=== PATIENT | female | born 1965 | race Caucasian/White ===

== ENCOUNTER 2017-05-22 11:25 | Inpatient (IN) | payer OTHER, SELFPAY ==
[2017-05-22] MEDS ORDERED: Insulin Regular 300 UNITS/3 ML VIAL ONE (11:52)
[2017-05-22 12:06] LABS: #Eosinphils 0.2 thou/uL (0.0-0.7); #Lymphocytes 2.4 thou/uL (1.20-3.40); #Monocytes 0.5 thou/uL (0.11-0.59); #Neutrophils 5.8 thou/uL (1.40-6.50); %Basophils 0.3 % (0.0-1.0); %Eosinophils 2.3 % (0.0-10.0); %Lymphocytes 26.6 % (21.0-51.0); Hematocrit 34.4 % (36.0-47.0); Mean Platelet Volume 7.9 fL (7.4-10.4); Red Blood Cell (RBC) Count 3.84 mill/uL (4.20-5.40); White Blood Cell (WBC) Count 8.9 thou/uL (4.8-10.8)
[2017-05-22 12:19] LABS: Anion Gap 11 mmol/L (-14-95); T. Carbon Dioxide 17.8 mmol/L (1.0-85.0); pH (Venous) 7.378 (7.35-7.45); vO2 Saturation-calc 98.2 % (0.0-100.0)
[2017-05-22 12:20] LABS: Bilirubin Negative (Negative); Blood, Urine Negative (Negative); Glucose, Urine (Dipstick) >=1000 mg/dL (Negative); Ketone, Urine Negative (Negative); Nitrite Negative (Negative); Protein, Urine (Dipstick) Negative (Neg-Trace); Urobilinogen 0.2 mg/dL (0.2-1.0)
[2017-05-22 12:31] LABS: ALT (SGPT) 69 U/L (8-55); AST (SGOT) 41 U/L (5-34); Alkaline Phosphatase 109 U/L (40-150); Anion Gap 17 mmol/L (10-20); BUN (Urea Nitrogen) 37 mg/dL (9.8-20.1); Bilirubin, Total 0.2 mg/dL (0.2-1.2); CK (CPK) 89 U/L (29-168); Calc. Creatinine Clearance 0 mL/min (70-130); Calcium 9.4 mg/dL (7.8-10.44); Carbon Dioxide 15 mmol/L (22-29); Chloride 99 mmol/L (98-107); Estimated GFR-MDRD 24; Globulin 4.1 g/dL (2.4-3.5); Lipase 40 U/L (8-78); Magnesium 1.7 mg/dL (1.6-2.6); Phosphorus 3.8 mg/dL (2.3-4.7); Protein, Total 7.8 g/dL (6.0-8.3); Troponin I 0.012 ng/mL (< 0.028)
[2017-05-22] MEDS ORDERED: Labetalol HCl 100 MG/20 ML VIAL ONE (13:32)
--- NOTE | 2017-05-22 14:32 | RAD ---
PORTABLE AP CHEST XRAY: DATE: 05/22/17. HISTORY: Altered mental status. COMPARISON: 10/25/16. FINDINGS: Cardiac silhouette is magnified by projection but stable in size. Pulmonary vasculature is within no rmal limits. The lungs are clear. There has been no interval change from prior study. IMPRESSION: No acute cardiopulmonary process. POS: [facility]
[2017-05-22] MEDS ORDERED: Ondansetron HCl/PF 4 MG/2 ML Vial IVP PRN (15:11)
[2017-05-22] MEDS ORDERED: Ondansetron ODT 4 MG TAB SL PRN (15:11)
[2017-05-22 15:17] VITALS: BMI 32.5
[2017-05-22] MEDS ORDERED: HYDROcodone/Acetaminophen 5/325 mg Tablet PO PRN (16:01)
[2017-05-22] MEDS ORDERED: Docusate 100 MG CAP PO PRN (16:01)
[2017-05-22] MEDS ORDERED: Acetaminophen 500 MG TAB PO PRN (16:20)
[2017-05-22] MEDS ORDERED: HumaLOG 300 UNITS/3 ML VIAL SC PRN (16:28)
[2017-05-22] MEDS ORDERED: Dextrose 5% in Water 1,000 ML IV PRN (16:28)
[2017-05-22] MEDS ORDERED: Dextrose 50% Abboject 50 ML SYRINGE SLOW IVP PRN (16:28)
[2017-05-22 16:35] LABS: Osmolality, Urine 561 mOsm/kg (300-900)
[2017-05-22] MEDS ORDERED: hydrALAZINE 20 MG/ML VIAL SLOW IVP PRN (16:44)
[2017-05-22 16:47] LABS: Sodium, Urine 76 mmol/L (Not Available)
[2017-05-22] MEDS: HYDROcodone/Acetaminophen 10/325 mg Tablet PO PRN ×2 (17:04→20:55)
[2017-05-22] MEDS: Clindamycin 150 MG CAP PO SCH (17:41)
[2017-05-22] MEDS: Sodium Chloride 0.9% 1,000 ML IV SCH (17:41)
[2017-05-22] MEDS: Simvastatin 5 MG TAB PO SCH (20:35)
[2017-05-22] MEDS: Insulin NPH/Reg Insulin Hm 300 UNITS/3 ML VIAL SC SCH (20:57)
[2017-05-22] MEDS ORDERED: FLU VACC QS2017-18 36 mo. & older 0.5 ML SYRINGE IM ONE (21:00)
[2017-05-23] MEDS: Clindamycin 150 MG CAP PO SCH ×2 (00:17→09:07)
[2017-05-23] MEDS: Sodium Chloride 0.9% 1,000 ML IV SCH ×2 (00:18→07:03)
--- NOTE | 2017-05-23 00:28 | ADD-HP ---
DATE OF SERVICE: 05/22/2017 CHIEF COMPLAINT: Hyperglycemia and tooth pain. HISTORY OF PRESENT ILLNESS: The patient is a 52-year-old female with a past medical history of denta l caries, diabetes, and hypertension, who presented to the ER for a 3-day history of tooth pain. The patient states that over the past couple of days she has noted increasingly high readings on her glu cometer. She has a bad tooth in the left lower jaw, but does not have money to go see a dentist. He r glucometers have been reading high for the past couple of days despite her taking her regular doses of insulin. In the ER, she was found to be hypertenive and hyperglycemic and given a dose of Humuli n as well as labetalol. Upon looking at her labs further, the patient is hyponatremic and hyperkalem ic. The patient's initial glucose was 604 and her initial creatinine was 2.16. AST and ALT are 41 a nd 69 respectively, but looking back that she has chronically elevated transaminases and has had an u ltrasound showing a fatty liver in the past. Beta hydroxybutyrate was normal and UA was significant for greater than 1000 glucose. ASSESSMENT AND PLAN: The patient is being admitted for hyperglycemia likely secondary to a tooth inf ection. The patient will be started on amoxicillin and given pain medicine to help control her tooth ache. Ultimately, she will need to see a dentist and have her teeth removed. She also has hyponatre ambar. We will likely do urine studies to help determine the cause of her hyponatremia. Based on exam , I think she may have hypovolemic as she has not had as much intake due to the sore tooth. We will trend her creatinine and start IV fluids. Monitor her electrolytes closely. The patient will be continued on insulin and also sliding scale insulin and we will adjust this as needed. She will b e restarted on her home blood pressure medications and also p.r.n. I reviewed and discussed the hist ory and physical with Dr. Martinez and agree with her documentation. I have repeated pertinent portion s myself.
[2017-05-23] MEDS: HYDROcodone/Acetaminophen 10/325 mg Tablet PO PRN ×3 (01:58→14:05)
--- NOTE | 2017-05-23 02:53 | HP-2 ---
DATE OF SERVICE: 05/22/2017 DATE OF ADMISSION: 05/22/2017 CODE STATUS: FULL. PRIMARY CARE PHYSICIAN: Gem Olivo. ATTENDING: Karrie White M.D. PGY1: Dr. Juan Montejo. HISTORIAN: The patient. CHIEF COMPLAINT: Tooth pain. HISTORY OF PRESENT ILLNESS: The patient presents with left tooth pain in her left lower jaw since Tuesday. The patient states that she lost her filling several months ago and has not had any insurance, and therefore, has not been able to go to a dentist. However, the patient does have a dentist appointment tomorrow at a clinic where she can pay 50 dollars to have her tooth removed. However, the patient was experiencing intense pain, elevated blood pressures, and elevated blood sugars to the 600 due to her tooth pain. PAST MEDICAL HISTORY: Diabetes, hypertension, CKD. PAST SURGICAL HISTORY: Hemorrhoidectomy x2, bilateral tubal ligation, hysterectomy. ALLERGIES: No known drug allergies. MEDICATIONS: 70/30 insulin, metoprolol, lovastatin, citalopram, lisinopril/ hydrochlorothiazide. FAMILY HISTORY: Denies. SOCIAL HISTORY: Denies tobacco, alcohol, or drug use. REVIEW OF SYSTEMS: Positive for fevers, tooth pain, and headache. Denies cough , congestion, chest pain, palpitations, nausea, vomiting, dysuria. PHYSICAL EXAMINATION: VITAL SIGNS: Blood pressure 188/81, pulse 72, respiratory rate 18, T-max 97.4, pulse ox 97% on room air. Current weight 94 kilograms. GENERAL: Alert and oriented x3, well-developed, well-nourished, appropriately interactive. EYES: PERRLA, EOMI. NECK: Supple, no lymphadenopathy or thyromegaly. ENT: Oropharynx. Tender to palpation in the left lower jaw gumline without erika pus or abscess. CARDIOVASCULAR: Regular rate and rhythm. No murmur, rubs, or gallops. Radial pulses 2+. RESPIRATORY: Normal effort, no retractions, clear to auscultation bilaterally. ABDOMEN: Soft, nontender to palpation. Bowel sounds in all 4 quadrants. No mass or distention. EXTREMITIES: No clubbing or cyanosis. MUSCULOSKELETAL: Structure within normal limits. NEUROLOGIC: No focal deficits. Cranial nerves II through XII intact. GCS 15. PSYCHIATRIC: Appropriate. LABORATORY DATA: CBC, white blood cell count 8.9, H and H 12 and 34.4, platelets 233. Chemistry: Sodium 126, potassium 5.2, chloride of 99, bicarbonate 15, BUN 37, creatinine 2.16, glucose 604. AST and ALT 91 and 69. GFR 24. ASSESSMENT AND PLAN: This is a 52-year-old female with a chief complaint of left molar pain since Tuesday without signs and symptoms of an abscess, not tachycardic or tachypneic, without leukocytosis or fever, admitted for odontogenic cavity, hyperglycemia, and hypertensive urgency. 1. Hyperglycemia secondary to odontogenic infection. The patient was placed on sliding scale insulin and her home regimen was increased. 2. Odontogenic infection, nonsuppurative without signs of an abscess. The patient was placed on clindamycin. The patient is currently afebrile with vital signs that are within normal limits. No need for imaging at this time. Will follow up with a dentist in an outpatient setting. The patient has a scheduled dentist appointment tomorrow. Pain medication will be provided. 3. Hypertensive urgency, likely secondary to odontogenic infection and secondary to pain. The patient's home medications were restarted and she was placed on p.r.n. hydralazine. No signs or symptoms of end-organ damage. 4. Mild hyperkalemia. The patient was provided with one dose of Kayexalate. Potassium will be rechecked in the morning. 5. Mild acute kidney injury on chronic kidney disease stage 3. The patient was started on intravenous fluids. This is likely the mild acute kidney injury likely secondary to the infection. 6. Hypotonic hyponatremia. The patient had a corrected sodium of 134. We will recheck in the morning. The patient had an elevated glucose to 600. 7. Hyperlipidemia. The patient was restarted on her statin. 8. Chronic kidney disease stage 3. Recommend avoiding nephrotoxic drugs. 9. Nonalcoholic fatty liver disease. The patient has a baseline. We will continue to monitor. DISPOSITION AND LENGTH OF STAY: 2 days. Symptomatic medications will be provided. History and physical exam, as well as management, discussed with Dr. Karrie White. NAINA
[2017-05-23 05:31] LABS: Band 7 % (5-11); Hematocrit 31.4 % (36.0-47.0); Mean Platelet Volume 8.9 fL (7.4-10.4); Myelocyte 1 % (0-0); Neutrophil 54 % (42-75); Red Blood Cell (RBC) Count 3.47 mill/uL (4.20-5.40); White Blood Cell (WBC) Count 8.5 thou/uL (4.8-10.8)
[2017-05-23 05:37] LABS: Anion Gap 13 mmol/L (10-20); BUN (Urea Nitrogen) 28 mg/dL (9.8-20.1); Calc. Creatinine Clearance 55 mL/min (70-130); Calcium 8.5 mg/dL (7.8-10.44); Carbon Dioxide 21 mmol/L (22-29); Chloride 107 mmol/L (98-107); Estimated GFR-MDRD 30
--- NOTE | 2017-05-23 07:57 | PDOC.FM ---
- Subjective Subjective: Pt seen at bedside in NAD. APOLONIA overnight. Pt does c/o some dry cough but notes overall she feels better. Tolerating PO. - Objective MAR Reviewed: Yes Vital Signs & Weight: Vital Signs (12 hours) Temp Pulse Resp BP Pulse Ox 05/23/17 07:50 97.8 F 84 19 166/92 H 95 05/23/17 04:40 98.2 F 87 20 138/77 93 L 05/22/17 23:00 97.8 F 81 20 133/68 95 05/22/17 20:05 97.0 F L 69 20 173/86 H 97 05/22/17 20:00 97.0 F L 69 20 97 Weight Weight 94.347 kg I&O: 05/22/17 05/23/17 05/24/17 06:59 06:59 06:59 Intake Total 2210 Output Total 1380 Balance 830 Result Diagrams: 05/23/17 04:30 05/23/17 04:30 <Zan Mcnair - Last Filed: 05/23/17 09:00> - Objective Vital Signs & Weight: Vital Signs (12 hours) Temp Pulse Resp BP Pulse Ox 05/23/17 09:07 84 05/23/17 09:06 90 05/23/17 08:00 97.8 F 84 19 95 05/23/17 07:50 97.8 F 84 19 166/92 H 95 05/23/17 04:40 98.2 F 87 20 138/77 93 L Weight Weight 94.347 kg I&O: 05/22/17 05/23/17 05/24/17 06:59 06:59 06:59 Intake Total 2210 Output Total 1380 Balance 830 Result Diagrams: 05/23/17 04:30 05/23/17 04:30 <Zach Rodriguez - Last Filed: 05/23/17 11:51> Phys Exam - Physical Examination Constitutional: NAD HEENT: PERRLA extremely poor dentition Neck: full ROM Respiratory: no wheezing, clear to auscultation bilateral Cardiovascular: RRR, no significant murmur Gastrointestinal: soft, positive bowel sounds Musculoskeletal: pulses present Neurological: moves all 4 limbs Psychiatric: normal affect, A&O x 3 <Zan Mcnair - Last Filed: 05/23/17 09:00> Dx/Plan (1) Hyperglycemia due to type 2 diabetes mellitus Code(s): E11.65 - TYPE 2 DIABETES MELLITUS WITH HYPERGLYCEMIA Status: Acute QualifierTitle: Diabetes mellitus retirement insulin use: with marine oil terminal superintendent use Qualified Code(s): E11.65 - Type 2 diabetes mellitus with hyperglycemia; Z79.4 - marine oil terminal superintendent (current) use of insulin; Z79.4 - marine oil terminal superintendent (current) use of insulin; Z79.4 - alf (current) use of insulin; Z79.4 - alf (current ) use of insulin Plan: -pt presented with hyperglycemia and no evidence of anion gap, acidosis, or ketone formation -hyperglycemia likely 2/2 acute odontogenic infection -continue home insulin regimen and continue to monitor accuchecks and cover with SSI as needed (2) Odontogenic infection of jaw Code(s): M27.2 - INFLAMMATORY CONDITIONS OF JAWS Status: Acute Plan: -pt presented for tooth pain and known infection for which she had outpatient f/ u with dentist -pt started on Clindamycin, continue abx -pt will need outpt dental f/u for ultimate treatment of infected tooth -case management consulted for assistance as patient is uninsured (3) Chronic kidney disease stage 3 Code(s): N18.3 - CHRONIC KIDNEY DISEASE, STAGE 3 (MODERATE) Status: Chronic Plan: -pt presented with ASIM on CKD3 likely 2/2 poor PO intake -improving with IVF resuscitation -continue to monitor (4) Hypertension Code(s): I10 - ESSENTIAL (PRIMARY) HYPERTENSION Status: Chronic QualifierTitle: Hypertension type: unspecified Qualified Code(s): I10 - Essential (primary) hypertension Plan: -on PO lisinopril/HCTZ and metoprolol -BPs elevated during hospitalization possibly 2/2 acute pain associated with infection -amlodipine added to antiHTN regimen -continue to monitor closely (5) Depressive disorder Code(s): F32.9 - MAJOR DEPRESSIVE DISORDER, SINGLE EPISODE, UNSPECIFIED Status : Chronic Plan: -continue home citalopram (6) Hyperlipidemia Code(s): E78.5 - HYPERLIPIDEMIA, UNSPECIFIED Status: Chronic Plan: -continue home lovastatin - Plan Plan: dispo: Pt improving. Continue to monitor accuchecks closely and titrate insulin accordingly. Case management assistance greatly appreciated for setting up outpatient follow up for dental care. Pending set up of outpatient follow up can likely discharge today or tomorrow. <Zan Mcnair - Last Filed: 05/23/17 09:00> Attending Addendum - Attending Addendum I personally evaluated the patient and discussed the management with Dr. Mcnair I agree with and repeated the History, Examination, Assessment and Plan documented above with any addition or exceptions noted below. DM/hyperglycemia: improved ASIM: improving HTN: stable HLP: stable Transaminitis: repeat labs in the AM if she is here, broaden workup. <Zach Rodriguez - Last Filed: 05/23/17 11:51>
[2017-05-23] MEDS: Insulin NPH/Reg Insulin Hm 300 UNITS/3 ML VIAL SC SCH ×2 (08:28→21:18)
[2017-05-23] MEDS: Lisinopril/Hydrochlorothiazide 20 mg/12.5 mg Tablet PO SCH (09:06)
[2017-05-23] MEDS: Citalopram 20 MG TAB PO SCH (09:06)
[2017-05-23] MEDS: Amlodipine 5 MG TAB PO SCH (09:07)
[2017-05-23] MEDS ORDERED: Benzonatate 100 MG CAP PO PRN (11:05)
[2017-05-23] MEDS ORDERED: Albuterol Sulfate 2.5 mg/3 ml Neb NEB SCH (20:30)
[2017-05-23 20:55] LABS: Troponin I Less than 0.010 ng/mL (< 0.028)
--- NOTE | 2017-05-23 20:55 | PDOC.EVN ---
Event Note - Event Note Event Note: Paged by nurse as patient was just getting to leave the hospital. Patient become hypertensive to 180's, given Hydralazine, then patient belched, and vomited food. Nurse took her Vitals again, and noted that she was mildly hypoxic to 88% on RA. Patient was very anxious and felt shortness of breath. Stat CXR, EKG, CE and CMP, CBC ordered. Will f/u with results. Will monitor patient overnight. <Valorie Tovar - Last Filed: 05/23/17 20:50> Attending Addendum - Attending Addendum I personally evaluated the patient and discussed the management with Dr. Armstrong I agree with the History, Examination, Assessment and Plan documented above with any addition or exceptions noted below. Mild hypoxic respiratory distressed improved with Nc 2L. Mild pulmonary edema with elevated BNP. Lasix given. Consider ECHO in AM. Severe HTN. Adjust medications. ABrayMD <Vivian Alonso - Last Filed: 05/24/17 02:45>
[2017-05-23 21:04] LABS: Hematocrit 33.1 % (36.0-47.0); Mean Platelet Volume 7.9 fL (7.4-10.4); Red Blood Cell (RBC) Count 3.66 mill/uL (4.20-5.40); White Blood Cell (WBC) Count 9.3 thou/uL (4.8-10.8)
--- NOTE | 2017-05-23 21:09 | RAD ---
CHEST ONE VIEW: History: Desaturation. Comparison: Prior day. FINDINGS: Worsening interstitial opacities from a comparison examination. Cardiac silhouette and mediastinal co ntours are similar. No pneumothorax. IMPRESSION: New interstitial opacities from the comparison examination suggests pulmonary edema. POS: [facility]
[2017-05-23] MEDS ORDERED: Lorazepam 0.5 MG TAB PO PRN (21:11)
[2017-05-23] MEDS: Simvastatin 5 MG TAB PO SCH (21:16)
[2017-05-23 21:18] LABS: ALT (SGPT) 73 U/L (8-55); AST (SGOT) 66 U/L (5-34); Alkaline Phosphatase 109 U/L (40-150); Anion Gap 13 mmol/L (10-20); BUN (Urea Nitrogen) 28 mg/dL (9.8-20.1); Bilirubin, Total 0.4 mg/dL (0.2-1.2); Calc. Creatinine Clearance 55 mL/min (70-130); Calcium 9.1 mg/dL (7.8-10.44); Carbon Dioxide 22 mmol/L (22-29); Chloride 105 mmol/L (98-107); Estimated GFR-MDRD 30; Globulin 3.4 g/dL (2.4-3.5); Protein, Total 6.9 g/dL (6.0-8.3)
[2017-05-23 21:38] LABS: Oxyhemoglobin 94.7 % (94.0-97.0); Sodium 135 mmol/L (135-148)
[2017-05-23 21:39] LABS: Modified Allen's Test POSITIVE; Vent NO
[2017-05-23] MEDS ORDERED: Furosemide 20 MG/2 ML VIAL SLOW IVP SCH (22:30)
[2017-05-24 05:50] LABS: Anion Gap 14 mmol/L (10-20); BUN (Urea Nitrogen) 27 mg/dL (9.8-20.1); Calc. Creatinine Clearance 56 mL/min (70-130); Calcium 9.2 mg/dL (7.8-10.44); Carbon Dioxide 22 mmol/L (22-29); Chloride 103 mmol/L (98-107); Estimated GFR-MDRD 31
--- NOTE | 2017-05-24 06:44 | PDOC.FM ---
Addendum entered and electronically signed by Zan Mcnair MD 05/24/17 10:43 : Please note that with acute event yesterday evening, the patient clinically appeared to be having a panic attack and her symptoms resolved with the administration of Ativan. Clinical suspicion for PE was low by evaluating team. Original Note: - Subjective Subjective: Pt seen at bedside in NAD. Pt had what was described as panic attack at time of discharge yesterday with episode of HTN and vomiting x1. All resolved with one dose ativan. Pt c/o tooth pain but denies MOORE, CP, SOB, NVD. Tolerating PO and eager to get to dentist. - Objective MAR Reviewed: Yes Vital Signs & Weight: Vital Signs (12 hours) Temp Pulse Resp BP BP Pulse Ox 05/24/17 00:00 98.7 F 75 22 H 144/83 H 95 05/23/17 21:19 76 134/60 94 L 05/23/17 20:49 79 18 95 05/23/17 19:50 98.7 F 71 18 156/75 H 89 L 05/23/17 19:01 80 24 H 148/75 H 89 L Weight Weight 94.347 kg I&O: 05/22/17 05/23/17 05/24/17 06:59 06:59 06:59 Intake Total 2210 1220 Output Total 1380 550 Balance 830 670 Result Diagrams: 05/23/17 20:20 05/24/17 04:38 <Zan Mcnair - Last Filed: 05/24/17 08:38> - Objective Vital Signs & Weight: Vital Signs (12 hours) Temp Pulse Resp BP Pulse Ox 05/24/17 11:14 159/73 H 93 L 05/24/17 09:35 75 05/24/17 08:30 97.9 F 75 18 96 05/24/17 07:52 97.9 F 75 18 161/76 H 96 Weight Weight 94.347 kg I&O: 05/23/17 05/24/17 05/25/17 06:59 06:59 06:59 Intake Total 2210 1220 Output Total 1380 550 Balance 830 670 Result Diagrams: 05/23/17 20:20 05/24/17 04:38 <Zach Rodriguez - Last Filed: 05/24/17 19:47> Phys Exam - Physical Examination Constitutional: NAD HEENT: PERRLA poor dentition Neck: full ROM Respiratory: no wheezing, clear to auscultation bilateral Cardiovascular: RRR, no significant murmur Gastrointestinal: soft, positive bowel sounds Musculoskeletal: pulses present Neurological: moves all 4 limbs Psychiatric: normal affect, A&O x 3 <Zan Mcnair - Last Filed: 05/24/17 08:38> Dx/Plan (1) Hyperglycemia due to type 2 diabetes mellitus Code(s): E11.65 - TYPE 2 DIABETES MELLITUS WITH HYPERGLYCEMIA Status: Acute QualifierTitle: Diabetes mellitus terminal supervisor insulin use: with group home use Qualified Code(s): E11.65 - Type 2 diabetes mellitus with hyperglycemia; Z79.4 - terminal clerk (current) use of insulin; Z79.4 - terminal clerk (current) use of insulin; Z79.4 - terminal clerk (current) use of insulin; Z79.4 - terminal clerk (current ) use of insulin Plan: -pt presented with hyperglycemia and no evidence of anion gap, acidosis, or ketone formation -hyperglycemia likely 2/2 acute odontogenic infection -continue home insulin regimen and continue to monitor accuchecks and cover with SSI as needed (2) Odontogenic infection of jaw Code(s): M27.2 - INFLAMMATORY CONDITIONS OF JAWS Status: Acute Plan: -pt presented for tooth pain for which she had outpatient f/u with dentist -pt will need outpt dental f/u for ultimate treatment of tooth -case management consulted for assistance as patient is uninsured -pt given list of local providers for dental assistance (3) Chronic kidney disease stage 3 Code(s): N18.3 - CHRONIC KIDNEY DISEASE, STAGE 3 (MODERATE) Status: Chronic Plan: -pt presented with ASIM on CKD3 likely 2/2 poor PO intake -improving with IVF resuscitation even with lasix administration -continue to monitor (4) Hypertension Code(s): I10 - ESSENTIAL (PRIMARY) HYPERTENSION Status: Chronic QualifierTitle: Hypertension type: unspecified Qualified Code(s): I10 - Essential (primary) hypertension Plan: -on PO lisinopril/HCTZ and metoprolol -BPs elevated during hospitalization possibly 2/2 acute pain associated with infection -amlodipine added to antiHTN regimen -continue to monitor closely (5) Depressive disorder Code(s): F32.9 - MAJOR DEPRESSIVE DISORDER, SINGLE EPISODE, UNSPECIFIED Status : Chronic Plan: -continue home citalopram (6) Hyperlipidemia Code(s): E78.5 - HYPERLIPIDEMIA, UNSPECIFIED Status: Chronic Plan: -continue home lovastatin (7) Fatty liver disease, nonalcoholic Status: Chronic Plan: -pt has hx of NAFLD and LFTs at baseline - Plan Plan: dispo: Pt overall improving. No recurrence of panic symptoms since isolated event. Continue to monitor with plan to likely discharge for outpatient dental follow up. <Zan Mcnair - Last Filed: 05/24/17 08:38> Attending Addendum - Attending Addendum I personally evaluated the patient and discussed the management with Dr. Mcnair. I agree with and repeated the History, Examination, Assessment and Plan documented above with any addition or exceptions noted below. Asymptomatic this morning besides some persistent but improved dental pain. RRR s M, pressures improved CTAB s w/r/r, no increased wob. No clinical signs of pulmonary edema. O2 sats mid 90's most recently. Will plan for TTE in light of event last night. <Zach Rodriguez - Last Filed: 05/24/17 19:47>
[2017-05-24 07:55] VITALS: TEMP 97.9
[2017-05-24] MEDS: Insulin NPH/Reg Insulin Hm 300 UNITS/3 ML VIAL SC SCH (08:40)
[2017-05-24] MEDS: Citalopram 20 MG TAB PO SCH (09:34)
[2017-05-24] MEDS: Amlodipine 5 MG TAB PO SCH (09:35)
[2017-05-24] MEDS: Lisinopril/Hydrochlorothiazide 20 mg/12.5 mg Tablet PO SCH (09:35)
[2017-05-24] MEDS: HYDROcodone/Acetaminophen 10/325 mg Tablet PO PRN (09:41)
[2017-05-24 11:14] VITALS: BP 159/73
--- NOTE | 2017-05-25 06:34 | DIS-2 ---
DATE OF ADMISSION: 05/22/2017 DATE OF DISCHARGE: 05/24/2017 RESIDENT: Zan Mcnair M.D. ADMITTING ATTENDING: Dr. Karrie White. DISCHARGE ATTENDING: Dr. Zach Rodriguez. CONSULTATIONS: Case management. PROCEDURES: 1. Chest x-ray performed on 05/22/2017 showed no acute cardiopulmonary process. 2. Repeat chest x-ray performed on 05/23/2017 showed new interstitial opacities suggesting pulmonary edema. PRIMARY DIAGNOSES: 1. Hyperglycemia, likely secondary to odontogenic infection versus medication noncompliance, resolved. 2. Hyperkalemia, resolved. 3. Hyperosmolar hyponatremia, resolved. 4. Hypertension. 5. Acute kidney injury on chronic kidney disease, stage 3, resolved. 6. Type 2 diabetes mellitus. 7. Hyperlipidemia. 8. Nonalcoholic fatty liver disease. DISCHARGE MEDICATIONS: 1. Lisinopril/HCTZ 20/12.5 one tab p.o. daily. 2. Metoprolol succinate 50 mg p.o. daily. 3. Novolin 70/30, 30 units subcutaneously at bedtime. 4. Novolin 70/30, 36 units subcutaneously q.a.m. 5. Citalopram 40 mg p.o. daily. 6. Lovastatin 20 mg p.o. at bedtime. 7. Amlodipine 5 mg p.o. daily. 8. Tessalon Perles 100 mg p.o. q.4 hours p.r.n. HISTORY OF PRESENT ILLNESS AND HOSPITAL COURSE: The patient is a 52-year-old female who initially presented to the hospital due to tooth pain. The patient stated that she has a known history of tooth infections and has known poor dentition with a history of having to have multiple teeth pulled and presented for similar presentation. The patient, on presentation, was also found to be hyperglycemic with a glucose of 500-600, however, had a normal metabolic panel with no anion gap, no acidosis on ABG and no ketones. The patient was treated with sliding scale insulin and monitored for resolution of her hyperglycemia, which responded well. The patient was also noted to have an ASIM, thought to be secondary to her hyperglycemia, which also responded to intravenous fluid resuscitation. The patient was initially given 2 days of clindamycin for what was thought to be an acute infection; however, further inspection of the patient's mouth showed no erythema, no drainage, and no obvious source of infection. Therefore, it was deemed that the antibiotics could likely be stopped; however, the patient would need further dental evaluation for ultimate treatment of her tooth pain. The patient was initially set to be discharged home on 05/23/2017; however, experienced what was described as a panic attack the evening of discharge. Initial workup supported the diagnosis of panic attack, which responded well to Ativan. A chest x-ray obtained at that time, however, did show evidence of pulmonary edema. This was thought to initially be secondary to aggressive intravenous fluid resuscitation. However, with the patient's complaint of recent dry cough, the recommendation for a transthoracic echocardiogram was made. The patient, however, left prior to further discussions being held about the possibility of an echo being performed on 05/24/2017. The patient was called on the phone and discussion was had that recommended strict ER precautions for any worsening heart failure exacerbation symptoms. The patient did not, at any point during her hospitalization, appear to be in an acute heart failure exacerbation or have any evidence of a pulmonary embolus. The patient voiced her understanding and stated that she did not want to come back to the hospital to have an echo done at this time. She was therefore recommended to have the study performed in the outpatient setting. The patient' s hospital course was otherwise uncomplicated. DISPOSITION: Stable. DISCHARGE INSTRUCTIONS: 1. Location: Home. 2. Diet: Diabetic and heart healthy diet. 3. Activity: As tolerated. 4. Followup: The patient was instructed to follow up with her primary care physician at [facility] within 1-2 weeks to review hospital stay and obtain long-term chronic medications. The patient was also given a list of local dental providers that she could follow up with for her chronic tooth pain. Greater than 30 minutes was spent preparing this discharge summary. NAINA
== END 2017-05-24 11:30 | disposition home or self-care (01) | DRG 638 ==
LOC: ERS 11:25 → OBSVTOIN 15:04 → 2SW 15:04 → 2NO 18:58
PROVIDERS: ADMIT Family Medicine; ATTEND Family Medicine
DX: E11.65 Type 2 diabetes mellitus with hyperglycemia (principal); N17.9 Acute kidney failure, unspecified; E11.22 Type 2 diabetes mellitus with diabetic chronic kidney disease; K76.0 Fatty (change of) liver, not elsewhere classified; N18.3 Chronic kidney disease, stage 3 (moderate); E87.1 Hypo-osmolality and hyponatremia; E87.5 Hyperkalemia; I16.0 Hypertensive urgency; E78.5 Hyperlipidemia, unspecified; Z23 Encounter for immunization; I12.9 Hypertensive chronic kidney disease with stage 1 through stage 4 chronic kidney disease, or unspecified chronic kidney disease; Z79.4 Long term (current) use of insulin; Z91.14 Patient's other noncompliance with medication regimen; K08.89 Other specified disorders of teeth and supporting structures; F32.9 Major depressive disorder, single episode, unspecified
CPT/HCPCS: 36415; 36416; 71010; 80048; 80053; 81003; 82010; 82330; 82553; 82803; 82805; 83690; 83735; 83880; 83935; 84100; 84300; 84484; 85007; 85025; 85027; 90471; 90682; 93005; 93010; 94640; 96361; 96374; 96375; G0008; J0360; J1815; J1940; J7611; Q2036

== ENCOUNTER 2017-08-17 15:26 | Emergency (ER) | payer SELFPAY ==
[2017-08-17 16:17] LABS: Bilirubin Negative (Negative); Blood, Urine Negative (Negative); Clarity CLEAR (Clear); Glucose, Urine (Dipstick) 100 mg/dL (Negative); Leukocyte Negative (Negative); Nitrite Negative (Negative); Protein, Urine (Dipstick) Negative (Neg-Trace); Specific Gravity, Urine 1.019 (1.002-1.036); Urobilinogen 0.2 mg/dL (0.2-1.0); pH, Urine 5.5 (5.0-9.0)
[2017-08-17 17:09] LABS: #Basophils 0.1 thou/uL (0.0-0.2); #Eosinphils 0.4 thou/uL (0.0-0.7); #Lymphocytes 2.4 thou/uL (1.20-3.40); #Monocytes 0.7 thou/uL (0.11-0.59); %Basophils 0.9 % (0.0-1.0); %Eosinophils 5.4 % (0.0-10.0); %Lymphocytes 31.2 % (21.0-51.0); %Monocytes 9.7 % (0.0-10.0); %Neutrophils 52.9 % (42.0-75.0); Hemoglobin 10.6 g/dL (12.0-16.0); Mean Corpuscular Volume 91.3 fl (81.0-99.0); Mean Platelet Volume 8.8 fL (7.4-10.4); Platelet Count 225 thou/uL (130-400); RBC Distribution Width 12.7 % (11.5-14.5); Red Blood Cell (RBC) Count 3.42 mill/uL (4.20-5.40); White Blood Cell (WBC) Count 7.5 thou/uL (4.8-10.8)
[2017-08-17] MEDS ORDERED: Ondansetron HCl/PF 4 MG/2 ML Vial ONE (17:23)
[2017-08-17 17:37] LABS: ALT (SGPT) 69 U/L (8-55); AST (SGOT) 45 U/L (5-34); Albumin 3.9 g/dL (3.5-5.0); Alkaline Phosphatase 132 U/L (40-150); Anion Gap 13 mmol/L (10-20); BUN (Urea Nitrogen) 33 mg/dL (9.8-20.1); Bilirubin, Total 0.3 mg/dL (0.2-1.2); Calc. Creatinine Clearance 0 mL/min (70-130); Calcium 8.8 mg/dL (7.8-10.44); Carbon Dioxide 22 mmol/L (22-29); Chloride 106 mmol/L (98-107); Estimated GFR-MDRD 26; Globulin 3.3 g/dL (2.4-3.5); Glucose 175 mg/dL (70-105); Lipase 29 U/L (8-78); Potassium 4.9 mmol/L (3.5-5.1); Protein, Total 7.2 g/dL (6.0-8.3); Sodium 136 mmol/L (136-145)
--- NOTE | 2017-08-17 18:18 | ULT ---
RIGHT UPPER QUADRANT ULTRASOUND: 08/17/17 INDICATION: Abdominal pain. FINDINGS: There is increased volume and increased echogenicity of the liver indicating hepatic steatosis. There is a borderline size of the gallbladder wall approximating 3 cm. There is a nondependent focus of in creased echogenicity without shadowing involving the gallbladder lumen which is a few millimeters in size and may relate to a small gallbladder polyp versus adherent stone or tumefactive of sludge. Imag ed common duct measures 5 mm which is within normal limits. There is no ascites of the right upper qu adrant visualized. Carrizales's sign reported as negative by the informix developer. IMPRESSION: 1. Probable small gallbladder polyp. The finding measures approximately 5 mm in size. Consider a six month followup exam to confirm stability. 2. Borderline sized gallbladder wall. 3. Hepatic steatosis. POS: [facility]
--- NOTE | 2017-08-17 19:49 | CT ---
CT ABDOMEN AND PELVIS WITHOUT CONTRAST 08/17/17 HISTORY: Abdominal pain. COMPARISON: Gallbladder ultrasound same day. FINDINGS: There is mild atelectatic changes in the lung bases. No pericardial effusion. There is a large right cystic adnexal mass and mass effect upon the uterus measuring 6.6 x 9 x 8.6 cm . There is also a mass along the left gonadal vessels anteriorly measuring 5.6 x 6.1 x 7.9 cm. These appear to be increase in size from the comparison examination in 2013. No dilated loops of large or small bowel. There appears to be some suture material noted near the cec al apex. Normal proximal small bowel rotation. There appear to be multiple pedunculated fibroids. IMPRESSION: Two separate adnexal masses, large, increased in size or new from the comparison examination in 2013. An MRI pelvis with and without contrast would be beneficial in this patient if the patient is able t o tolerate with her GFR. Otherwise laboratory evaluation and EQUIPMENT MECHANIC consultation recommended. POS: [facility]
== END 2017-08-17 20:12 | disposition home or self-care (01) ==
LOC: ERS 15:26
DX: K76.0 Fatty (change of) liver, not elsewhere classified (principal); R19.09 Other intra-abdominal and pelvic swelling, mass and lump; E11.9 Type 2 diabetes mellitus without complications; E78.5 Hyperlipidemia, unspecified; I10 Essential (primary) hypertension; F32.9 Major depressive disorder, single episode, unspecified
CPT/HCPCS: 36415; 74176; 76705; 80053; 81003; 83690; 85025; 96374; 96375; J2270; J2405

== ENCOUNTER 2017-12-24 12:10 | Emergency (ER) | payer MEDICARE, SELFPAY ==
[2017-12-24] MEDS ORDERED: Lorazepam 2 MG/ML VIAL ONE (12:42)
[2017-12-24] MEDS ORDERED: Acetaminophen 500 MG TAB ONE (12:42)
[2017-12-24 13:00] LABS: #Basophils 0.1 thou/uL (0.0-0.2); #Eosinphils 0.2 thou/uL (0.0-0.7); #Lymphocytes 2.5 thou/uL (1.20-3.40); #Monocytes 0.7 thou/uL (0.11-0.59); #Neutrophils 6.7 thou/uL (1.40-6.50); %Basophils 0.9 % (0.0-1.0); %Eosinophils 2.3 % (0.0-10.0); %Lymphocytes 24.4 % (21.0-51.0); %Neutrophils 65.4 % (42.0-75.0); Hemoglobin 12.6 g/dL (12.0-16.0); Mean Corpuscular HGB CONC 36.1 g/dL (32.0-36.0); Mean Corpuscular Hemoglobin 31.4 pg (27.0-31.0); Mean Corpuscular Volume 86.9 fL (78.0-98.0); Mean Platelet Volume 9.1 fL (7.4-10.4); Platelet Count 205 thou/uL (130-400); RBC Distribution Width 12.7 % (11.5-14.5); Red Blood Cell (RBC) Count 4.01 mill/uL (4.20-5.40); White Blood Cell (WBC) Count 10.2 thou/uL (4.8-10.8)
[2017-12-24 13:16] LABS: ALT (SGPT) 60 U/L (8-55); AST (SGOT) 53 U/L (5-34); Albumin 4.3 g/dL (3.5-5.0); Alkaline Phosphatase 124 U/L (40-150); Anion Gap 18 mmol/L (10-20); BUN (Urea Nitrogen) 43 mg/dL (9.8-20.1); Bilirubin, Total 0.6 mg/dL (0.2-1.2); CK (CPK) 98 U/L (29-168); Calc. Creatinine Clearance 0 mL/min (70-130); Calcium 9.6 mg/dL (7.8-10.44); Carbon Dioxide 18 mmol/L (22-29); Chloride 100 mmol/L (98-107); Estimated GFR-MDRD 17; Globulin 3.6 g/dL (2.4-3.5); Glucose 401 mg/dL (70-105); Potassium 5.1 mmol/L (3.5-5.1); Protein, Total 7.9 g/dL (6.0-8.3); Sodium 131 mmol/L (136-145)
[2017-12-24 13:19] LABS: CKMB 1.4 ng/mL (0-6.6); Troponin I Less than 0.010 ng/mL (< 0.028)
--- NOTE | 2017-12-24 13:26 | RAD ---
2 VIEW CHEST: Date: 12/24/17 HISTORY: Chest pain and shortness of breath. FINDINGS: Lungs are clear. No infiltrate or vascular congestion. Heart and mediastinum appear normal. Osseous s tructures unremarkable. IMPRESSION: Unremarkable chest. POS: [facility]
--- NOTE | 2017-12-24 14:56 | NM ---
VENTILATION PERFUSION LUNG SCAN: Date: 12/24/17 INDICATION: Chest pain. Assess for pulmonary embolus. Dyspnea. Correlation made to chest film from earlier today, which appeared unremarkable. FINDINGS: Ventilation scan performed with administration of 13 mCi inhaled Xenon gas. Anterior and posterior im ages obtained. No ventilation defect identified. Perfusion scan performed with administration of 5 mCi technetium-MAA IV. Lungs were imaged in 8 proje ctions. No perfusion is seen. No perfusion defect identified. IMPRESSION: Normal VQ scan. POS: [facility]
[2017-12-24] MEDS ORDERED: Metoclopramide HCl 10 MG/2 ML VIAL ONE (15:38)
[2017-12-24] MEDS ORDERED: diphenhydrAMINE 50 MG/ML VIAL ONE (15:38)
[2017-12-24 17:01] LABS: Troponin I 0.025 ng/mL (< 0.028)
== END 2017-12-24 17:58 | disposition home or self-care (01) ==
LOC: ERS 12:10
DX: F41.9 Anxiety disorder, unspecified (principal); E11.65 Type 2 diabetes mellitus with hyperglycemia; E78.5 Hyperlipidemia, unspecified; I10 Essential (primary) hypertension; F32.9 Major depressive disorder, single episode, unspecified; Z79.899 Other long term (current) drug therapy
CPT/HCPCS: 71046; 78582; 80053; 82550; 82553; 82962; 83880; 84484 ×2; 85025; 93005; 96361; 96374; 96375; 99285; A9540; A9558; 36415; 36416; J1200; J2060; J2765

== ENCOUNTER 2018-01-05 20:34 | Emergency (ER) | payer MEDICARE ==
[2018-01-05] MEDS ORDERED: Ondansetron ODT 4 MG TAB ONE (20:48)
[2018-01-05 21:11] LABS: #Basophils 0.1 thou/uL (0.0-0.2); #Eosinphils 0.1 thou/uL (0.0-0.7); #Lymphocytes 2.4 thou/uL (1.20-3.40); #Neutrophils 11.1 thou/uL (1.40-6.50); %Basophils 0.4 % (0.0-1.0); %Eosinophils 0.7 % (0.0-10.0); %Lymphocytes 16.2 % (21.0-51.0); %Neutrophils 75.7 % (42.0-75.0); Hemoglobin 11.9 g/dL (12.0-16.0); Mean Corpuscular HGB CONC 35.2 g/dL (32.0-36.0); Mean Corpuscular Hemoglobin 30.6 pg (27.0-31.0); Mean Corpuscular Volume 87.1 fL (78.0-98.0); Mean Platelet Volume 8.2 fL (7.4-10.4); Platelet Count 262 thou/uL (130-400); RBC Distribution Width 12.6 % (11.5-14.5); Red Blood Cell (RBC) Count 3.88 mill/uL (4.20-5.40); White Blood Cell (WBC) Count 14.6 thou/uL (4.8-10.8)
[2018-01-05 21:33] LABS: ALT (SGPT) 97 U/L (8-55); AST (SGOT) 123 U/L (5-34); Albumin 4.5 g/dL (3.5-5.0); Alkaline Phosphatase 140 U/L (40-150); Anion Gap 19 mmol/L (10-20); BUN (Urea Nitrogen) 44 mg/dL (9.8-20.1); Bilirubin, Total 0.5 mg/dL (0.2-1.2); Calc. Creatinine Clearance 0 mL/min (70-130); Calcium 9.5 mg/dL (7.8-10.44); Carbon Dioxide 17 mmol/L (22-29); Chloride 103 mmol/L (98-107); Estimated GFR-MDRD 23; Globulin 3.6 g/dL (2.4-3.5); Glucose 204 mg/dL (70-105); Lipase 486 U/L (8-78); Potassium 4.3 mmol/L (3.5-5.1); Protein, Total 8.1 g/dL (6.0-8.3); Sodium 135 mmol/L (136-145)
[2018-01-05 23:18] LABS: Bilirubin Negative (Negative); Blood, Urine Large (Negative); Clarity CLEAR (Clear); Glucose, Urine (Dipstick) Negative (Negative); Leukocyte Negative (Negative); Nitrite Negative (Negative); Protein, Urine (Dipstick) Trace mg/dL (Neg-Trace); Specific Gravity, Urine 1.026 (1.002-1.036); Urobilinogen 0.2 mg/dL (0.2-1.0); pH, Urine 5.5 (5.0-9.0)
[2018-01-05 23:21] LABS: Bacteria/HPF None Seen HPF (None Seen); Pathc Cast-AUWi Flag 4.79 (0-2.49); RBC/HPF 21-50 HPF (0-3); WBC/HPF 0-3 HPF (0-3)
[2018-01-05 23:34] LABS: Other Casts/LPF None Seen LPF (0-3 Hyaline)
--- NOTE | 2018-01-06 08:02 | ULT ---
PRELIMINARY REPORT/[facility]/EMERGENTY AFTER-HOURS PROCEDURE US Abdomen Limited, Right Upper Quadrant CLINICAL HISTORY: 52 years old, female; Pain; Abdominal pain; Localized; Right upper quadrant (ruq) TECHNIQUE: Real-time ultrasound of the right upper quadrant with image documentation. COMPARISON: No relevant prior studies available. FINDINGS: Limitations: Limited study due to bowel gas and body habitus. Liver: Mildly enlarged and fatty. No acute findings. No mass. No intrahepatic bile duct dilation. Gallbladder: No acute findings. No gallstones. Possible small polyp. Common bile duct: Unremarkable. Pancreas: Obscured by bowel gas. Right kidney: No acute findings. No stones. No solid mass. No hydronephrosis. IMPRESSION: No definite acute process. Findings described above. Thank you for allowing us to participate in the care of your patient. Dictated and Authenticated by: Pete Mehta MD 01/06/2018 3:17 AM Central Time ([place] & [place]) FINAL RPEORT GALLBLADDER ULTRASOUND: Date: 01/05/18 FINDINGS/IMPRESSION: I agree with the preliminary report provided by [place]. There is a small gallbladder polyp. No addition al acute abnormality is noted. Mild fatty liver is again seen. The gallbladder polyp appears similar to the comparison dated 08/17/17. POS: [facility]
== END 2018-01-06 02:13 | disposition home or self-care (01) ==
LOC: ERS 20:34
DX: K85.90 Acute pancreatitis without necrosis or infection, unspecified (principal); E11.9 Type 2 diabetes mellitus without complications; E78.5 Hyperlipidemia, unspecified; I10 Essential (primary) hypertension; F32.9 Major depressive disorder, single episode, unspecified; Z79.4 Long term (current) use of insulin; Z79.899 Other long term (current) drug therapy
CPT/HCPCS: 36415; 36416; 51701; 76705; 80053; 81003; 81015; 83690; 85025; 96360; 96361; A4353; Q0162

== ENCOUNTER 2018-02-02 09:46 | Outpatient (CLI) | payer MEDICARE | END 2018-02-02 09:47 | disposition home or self-care (01) | LOC: BICMAMMO 09:46 | PROVIDERS: ATTEND Family Medicine | DX: Z12.31 Encounter for screening mammogram for malignant neoplasm of breast (principal) | CPT/HCPCS: 77063; 77067 ==

== ENCOUNTER 2018-02-06 14:43 | Emergency (ER) | payer MEDICARE ==
[2018-02-06 15:30] LABS: #Basophils 0.1 thou/uL (0.0-0.2); #Eosinphils 0.3 thou/uL (0.0-0.7); #Lymphocytes 3.2 thou/uL (1.20-3.40); #Monocytes 0.7 thou/uL (0.11-0.59); #Neutrophils 6.9 thou/uL (1.40-6.50); %Basophils 0.5 % (0.0-1.0); %Eosinophils 2.7 % (0.0-10.0); %Lymphocytes 28.9 % (21.0-51.0); %Monocytes 5.8 % (0.0-10.0); %Neutrophils 62.2 % (42.0-75.0); Mean Corpuscular HGB CONC 36.2 g/dL (32.0-36.0); Mean Corpuscular Hemoglobin 30.8 pg (27.0-31.0); Mean Corpuscular Volume 85.3 fL (78.0-98.0); Mean Platelet Volume 8.7 fL (7.4-10.4); Platelet Count 266 thou/uL (130-400); Red Blood Cell (RBC) Count 4.23 mill/uL (4.20-5.40); White Blood Cell (WBC) Count 11.1 thou/uL (4.8-10.8)
[2018-02-06 15:49] LABS: ALT (SGPT) 60 U/L (8-55); AST (SGOT) 42 U/L (5-34); Albumin 4.7 g/dL (3.5-5.0); Alkaline Phosphatase 123 U/L (40-150); Anion Gap 19 mmol/L (10-20); BUN (Urea Nitrogen) 60 mg/dL (9.8-20.1); Bilirubin, Total 0.4 mg/dL (0.2-1.2); Calc. Creatinine Clearance 0 mL/min (70-130); Calcium 10.8 mg/dL (7.8-10.44); Carbon Dioxide 18 mmol/L (22-29); Chloride 100 mmol/L (98-107); Estimated GFR-MDRD 21; Globulin 4.1 g/dL (2.4-3.5); Glucose 430 mg/dL (70-105); Lipase 68 U/L (8-78); Potassium 5.6 mmol/L (3.5-5.1); Protein, Total 8.8 g/dL (6.0-8.3); Sodium 131 mmol/L (136-145)
[2018-02-06 16:25] LABS: Bilirubin Negative (Negative); Blood, Urine Negative (Negative); Clarity CLEAR (Clear); Glucose, Urine (Dipstick) 500 mg/dL (Negative); Leukocyte Negative (Negative); Nitrite Negative (Negative); Protein, Urine (Dipstick) Negative (Neg-Trace); Specific Gravity, Urine 1.024 (1.002-1.036); Urobilinogen 0.2 mg/dL (0.2-1.0)
[2018-02-06] MEDS ORDERED: Dextrose 50% Abboject 50 ML SYRINGE ONE (18:37)
[2018-02-06] MEDS ORDERED: Insulin Regular 300 UNITS/3 ML VIAL ONE (18:37)
--- NOTE | 2018-02-06 20:53 | RAD ---
TWO VIEW RIGHT HIP: 02/06/18 INDICATION: Right hip pain. FINDINGS: There is no fracture or dislocation. Mild osteoarthritis is present. IMPRESSION: No acute osseous abnormality right hip. POS: [facility]
== END 2018-02-06 20:53 | disposition home or self-care (01) ==
LOC: ERS 14:43
DX: E11.65 Type 2 diabetes mellitus with hyperglycemia (principal); E87.5 Hyperkalemia; I10 Essential (primary) hypertension; F32.9 Major depressive disorder, single episode, unspecified; E78.5 Hyperlipidemia, unspecified; Z79.899 Other long term (current) drug therapy
CPT/HCPCS: 36415; 36416; 80053; 81003; 82010; 83690; 85025; 93005; 96374; 96375; J1815

== ENCOUNTER 2018-02-24 13:16 | Outpatient (CLI) | payer MEDICARE ==
--- NOTE | 2018-02-24 16:53 | MRI ---
MRI OF THE PELVIS WITHOUT IV CONTRAST: Date: 02/24/18 INDICATION: Pelvic masses and pelvic pain. TECHNIQUE: Multiplanar, multisequence MR images were obtained of the pelvis without IV contrast. IV contrast was precluded due to the patient's diminished GFR. Comparisons made with prior CT of abdomen and pelvis dated 08/17/17 and 04/10/14. FINDINGS: There are bilateral complex cystic masses within the ovaries. The largest lesion is seen within the r ight adnexa measuring 10.4 x 7.6 x 12.8 cm. The cystic lesions are multilocular and are predominantly T2 hyperintense and T1 hypointense. No definite large eccentric nodular component is evident within the limitations of noncontrast exam. The left adnexal cystic mass has a similar morphological appeara nce as the right adnexal mass. The lesion is smaller, however, measuring 9.2 x 6.2 x 7.8 cm. There are multiple fibroids involving the uterus. The largest is seen along the posterior uterine bod y measuring 3.0 cm. No free fluid is evident. No pathologically enlarged lymph nodes are evident. The re is susceptibility artifact within the inguinal regions bilaterally, likely related to vascular cli ps. No definite bone marrow signal abnormality is grossly evident. IMPRESSION: 1. Large, complex cystic lesions within both adnexa, highly suspicious for bilateral cystadenomas. O B/PER[employer] consultation recommended. Low malignant potential serous adenocarcinomas are not entirely exclu ded. No suspicious malignant imaging feature is grossly evident on the current examination; however, this was a noncontrast exam due to patient's renal insufficiency. 2. Fibroid uterus. POS: [facility]
== END 2018-02-24 13:17 | disposition home or self-care (01) ==
LOC: SCSMRI 13:16
PROVIDERS: ATTEND Family Medicine
DX: R19.09 Other intra-abdominal and pelvic swelling, mass and lump (principal); D25.9 Leiomyoma of uterus, unspecified
CPT/HCPCS: 72195; 82565

== ENCOUNTER 2018-03-15 10:27 | Outpatient (CLI) | payer MEDICARE | END 2018-03-15 10:28 | disposition home or self-care (01) | LOC: BICULT 10:27 | PROVIDERS: ATTEND Internal Medicine Nephrology | DX: N18.3 Chronic kidney disease, stage 3 (moderate) (principal) | CPT/HCPCS: 76770 ==

== ENCOUNTER 2018-06-08 09:25 | Outpatient (CLI) | payer MEDICARE ==
[2018-06-08 10:57] LABS: Hemoglobin 13.3 g/dL (12.0-16.0); Mean Corpuscular HGB CONC 34.4 g/dL (32.0-36.0); Mean Corpuscular Hemoglobin 29.2 pg (27.0-31.0); Mean Corpuscular Volume 84.8 fL (78.0-98.0); Mean Platelet Volume 7.8 fL (7.4-10.4); Platelet Count 323 thou/uL (130-400); RBC Distribution Width 13.1 % (11.5-14.5); Red Blood Cell (RBC) Count 4.55 mill/uL (4.20-5.40); White Blood Cell (WBC) Count 11.9 thou/uL (4.8-10.8)
[2018-06-08 11:26] LABS: Anion Gap 18 mmol/L (10-20); BUN (Urea Nitrogen) 47 mg/dL (9.8-20.1); Calc. Creatinine Clearance 0 mL/min (70-130); Calcium 9.8 mg/dL (7.8-10.44); Carbon Dioxide 17 mmol/L (22-29); Chloride 104 mmol/L (98-107); Estimated GFR-MDRD 25; Glucose 409 mg/dL (70-105); Potassium 4.7 mmol/L (3.5-5.1); Sodium 134 mmol/L (136-145)
== END 2018-06-08 09:26 | disposition home or self-care (01) ==
LOC: LABBT 09:25
PROVIDERS: ATTEND Obstetrics & Gynecology
DX: Z01.812 Encounter for preprocedural laboratory examination (principal); E11.9 Type 2 diabetes mellitus without complications
CPT/HCPCS: 80048; 85027; 86850; 86900; 86901

== ENCOUNTER 2018-06-08 09:30 | Inpatient (IN) | payer MEDICARE ==
--- NOTE | 2018-06-08 11:06 | HP ---
DATE OF SURGERY: She is set for surgery on 06/13/2018. HISTORY OF PRESENT ILLNESS: Ms. Ferguson is a 53-year-old white female, menopausal with tubal ligation, who was referred by her primary care physician, Dr. Gonsales. She is noted to have a very large bilateral ovarian cyst seen on MRI of the pelvis and abdomen. The MRI showed bilateral masses, the right ovary measuring 10.4 x 7.6 x 12.8 cm with no nodular component. Left adnexal complex cyst measuring 9.2 x 6.2 x 7.8 cm. She also has multiple uterine fibroids seen in the uterus, largest being 3 cm. The findings on MRI were consistent with bilateral ovarian cyst adenomas. Her CA-125 was mildly elevated at 41. She has no evidence of ascites or adenopathy noted. She has been having increasing pelvic pain and bloating and fullness and this has been ongoing over the past year or more. PAST MEDICAL HISTORY: 1. She has type 2 diabetes. 2. She has chronic hypertension. 3. Hyperlipidemia. 4. Chronic renal insufficiency. PAST SURGICAL HISTORY: 1. Tubal ligation. 2. Appendectomy. CURRENT MEDICATIONS: 1. Toujeo insulin 55 units q.a.m. 2. Hydralazine 25 mg p.o. t.i.d. 3. Zoloft 100 mg daily. 4. Toprol 25 mg b.i.d. 5. Onglyza 2.5 mg b.i.d. 6. NovoLog 10 to 15 units q.a.c. 7. Trazodone 100 mg at bedtime. 8. Protonix 20 mg daily. 9. Amlodipine 10 mg daily. 10. Atorvastatin 20 mg daily. SOCIAL HISTORY: She is a nonsmoker. No excessive alcohol use. FAMILY HISTORY: Noncontributory. Of note, no breast or ovarian cancer in any first-degree relatives. PHYSICAL EXAMINATION: VITAL SIGNS: Her blood pressure is 140/74, weight 217 pounds, height 5 feet 7 inches, respirations 18, and pulse 77. HEENT: Within normal limits. CHEST: Clear to auscultation. HEART: Regular rate and rhythm. S1 and S2 heart sounds. No murmurs, rubs, or gallops. ABDOMEN: Soft, nontender, and nondistended. There is a mass in the lower abdomen, approximately 16-week size, nontender. No hernia noted. PELVIC: Vulva and vagina had no lesions. Cervix had no lesions. Pap smear obtained was ASCUS with negative HPV. No gross cervical lesion seen. Uterus and adnexa, palpable mass bilateral filling pelvis, 16 to 18 week in size. The patient did undergo preoperative clearance by Cardiology, Dr. Agarwal, and she has been cleared for surgery. She had a cardiac perfusion study showing ejection fraction of 63% with a small reversible filling defect at the apex, which was possible mild ischemia, but low risk. ASSESSMENT: 1. This is a 53-year-old white female with large bilateral adnexal masses and uterine fibroids, most consistent with serous cystadenoma of the ovaries and uterine fibroids. 2. Type 2 diabetes. 3. Chronic renal insufficiency. Baseline creatinine 1.5 from her diabetes. Surgically cleared by Cardiology. PLAN: To proceed with total abdominal hysterectomy, bilateral salpingo-oophorectomy, On-Q pump for postoperative pain management. Risks and benefits of procedure discussed in detail. She is set for surgery 06/13/2018. Job ID: [id number]
[2018-06-13] MEDS ORDERED: CEFAZOLIN 2 GM/50 ML BAG ONE (10:59)
[2018-06-13] MEDS ORDERED: Insulin Regular 300 UNITS/3 ML VIAL ONE (10:59)
[2018-06-13] MEDS ORDERED: Famotidine/PF 20 mg/2ml Vial ONE (11:01)
[2018-06-13] MEDS ORDERED: Bupivacaine/Epinephrine 0.25% 30 ML VIAL ONE (13:35)
[2018-06-13] MEDS ORDERED: Fentanyl 250 MCG/5 ML VIAL ONE (13:43)
[2018-06-13] MEDS ORDERED: ROPIVACAINE NERVE BLCK SCH (13:45)
[2018-06-13] MEDS ORDERED: Bisacodyl 10 MG SUPP PR PRN (15:54)
[2018-06-13] MEDS ORDERED: Ondansetron PF 4 MG/2 ML Vial IVP PRN (15:54)
[2018-06-13] MEDS ORDERED: traMADol HCl 50 MG TAB PO PRN (15:54)
[2018-06-13] MEDS ORDERED: Simethicone Chewable 80 MG TAB PO PRN (15:54)
[2018-06-13] MEDS ORDERED: Promethazine HCl 25 MG/ML VIAL IM PRN ×2 (15:54→16:20)
[2018-06-13] MEDS ORDERED: diphenhydrAMINE 25 MG CAP PO PRN (15:54)
[2018-06-13] MEDS ORDERED: Acetaminophen 1,000 MG in Premix Bag 1 BAG IVPB PRN (15:56)
[2018-06-13] MEDS ORDERED: Dextrose 50% Abboject 50 ML SYRINGE SLOW IVP PRN (15:57)
[2018-06-13] MEDS ORDERED: Dextrose 5% in Water 1,000 ML IV PRN (15:57)
[2018-06-13] MEDS ORDERED: Ondansetron HCl/PF 4 MG/2 ML Vial IVP PRN (16:20)
[2018-06-13] MEDS ORDERED: Promethazine HCl 25 MG/ML VIAL SLOW IVP PRN (16:20)
[2018-06-13] MEDS ORDERED: Fentanyl 100 MCG/2 ML VIAL ONE ×3 (16:32→18:15)
[2018-06-13] MEDS ORDERED: Promethazine HCl 25 MG/ML VIAL ONE (17:19)
[2018-06-13] MEDS ORDERED: Morphine 4 MG/ML VIAL ONE (18:45)
[2018-06-13] MEDS ORDERED: Insulin Regular 300 UNITS/3 ML VIAL IVP SCH (19:00)
[2018-06-13] MEDS: traMADol HCl 50 MG TAB PO PRN (20:57)
[2018-06-13] MEDS ORDERED: Dexamethasone 20 MG/5 ML VIAL ONE (20:57)
[2018-06-13] MEDS ORDERED: Glycopyrrolate 0.2 MG/ML 5 ML SYRINGE ONE (20:57)
[2018-06-13] MEDS ORDERED: PROPOFOL 200 MG/20 ML VIAL ONE (20:57)
[2018-06-13] MEDS ORDERED: Ondansetron PF 4 MG/2 ML Vial ONE (20:57)
[2018-06-13] MEDS: Zolpidem Tartrate 5 MG TAB PO PRN (21:01)
[2018-06-13] MEDS: hydrALAZINE 25 MG TAB PO SCH (21:02)
[2018-06-13] MEDS: Atorvastatin Calcium 20 MG TAB PO SCH (21:02)
[2018-06-13] MEDS: Morphine 4 MG/ML VIAL SLOW IVP PRN (22:09)
[2018-06-13] MEDS: Lactated Ringer's 1,000 ML IV SCH ×2 (22:14→23:53)
--- NOTE | 2018-06-13 22:55 | OP ---
DATE OF PROCEDURE: 06/13/2018 PREOPERATIVE DIAGNOSES: 1. A 53-year-old white female with large bilateral adnexal cystic masses. 2. Uterine fibroids. 3. History of chronic renal insufficiency secondary to adult-onset diabetes. 4. Pelvic pain. POSTOPERATIVE DIAGNOSES: 1. A 53-year-old white female with large bilateral adnexal cystic masses. 2. Uterine fibroids. 3. History of chronic renal insufficiency secondary to adult-onset diabetes. 4. Pelvic pain. PROCEDURES PERFORMED: Total abdominal hysterectomy and bilateral salpingo-oophorectomy. ASSISTANT STATISTICIAN SURGEON: Torres Bolden DO, MS ANESTHESIA: General endotracheal. ESTIMATED BLOOD LOSS: 150 mL. COMPLICATIONS: None. COUNTS: Correct x2. ANTIBIOTICS: 2 g Ancef, on-call to OR. FINDINGS: 1. Bilateral multicystic lobulated adnexal masses with no excrescences, most likely serous cystadenomas. 2. Uterus with multiple small subserosal uterine fibroids mainly in the fundal region. 3. Clear urine present in Mallory catheter postprocedure. 4. Normal-appearing small bowel, colon, and omentum. No evidence of any ascites or tumor implants. DISPOSITION: Recovery room, stable. DESCRIPTION OF PROCEDURE: The patient previously received informed consent in regard to surgery. She was taken back to the operating room, where she received a general endotracheal anesthetic agent without complications. She was placed in supine position, prepped and draped in usual sterile fashion. Mallory catheter had been placed. A vertical midline incision was made up to the umbilicus. The fascia was nicked in the midline. The fascial incision was extended superiorly and inferiorly. The peritoneal cavity was then entered and upon entry, pelvic washings were obtained with Asepto with saline and sent to the Pathology. The large adnexal masses were then delivered through the abdominal incision. The left adnexal mass was removed by placing 2 Alvaro clamps under the pedicle side of the IP ligament, excising it and the suture pedicles were secured with 4-1/2 tie of 0 Vicryl and a free tie of 0 Vicryl securing hemostasis. The right adnexal mass again in similar fashion was brought away from the pelvic sidewall. Two Alvaro clamps were placed under the infundibulopelvic ligament below and a back clamp was placed underneath the specimen. The ureter was noted to be well below the pedicle site. Hendricks scissors were used to cut through the clamped pedicle and two 4-1/2 tie of 0 Vicryl were placed along with a free tie of 0 Vicryl securing hemostasis. Once this was accomplished, the uterus was then grasped at the fundus with a double-tooth tenaculum and then an Ivan O retractor was placed. At this time, the left round ligament was suture ligated with 0 Vicryl suture x2. The intervening space was transected with Bovie cautery. At the posterior leaf of the broad ligament was made a defect incorporating remaining of the broad ligament and clamped with Alvaro clamps, transected, and suture ligated. The anterior vesicouterine peritoneal reflection was then incised with Metzenbaum scissors developing the bladder flap on the patient's left side, dropping the bladder past the cervical-vaginal angle. The uterine vessels were again skeletonized with Metzenbaum scissors and the uterine vessels were clamped at the internal cervical os region with Alvaro clamps, transected, and suture ligated with 0 Vicryl suture. This likewise fashion was carried on the patient's right side. Again, the right round ligament was suture ligated and transected. The anterior vesicouterine peritoneum was incised again creating the bladder flap, again dissecting the bladder on the patient's right side of the uterus atraumatically past the cervical-vaginal angle. The uterine vessels again were skeletonized on the right side and clamped at the internal cervical os region. Intervening straight [place] clamps were then placed medial to the previous pedicle sites down the remainder of the cardinal and uterosacral ligament complexes, which were clamped, transected, and suture ligated. The vaginal cuff angles were reached. The bladder was noted to be well past this operative site. Two Alvaro clamps were placed creating the vaginal angles just beneath the cervix and the specimen was excised with Hendricks scissors and Kwame scissors. The angles were then closed with stitches of 0 Vicryl suture on each angle and then additional [id number] stitches of 0 Vicryl placed in the intervening portion of the vaginal cuff securing hemostasis. The pelvis was irrigated and suctioned. Clear urine was draining from the Mallory catheter. There was some ongoing peritoneal edge bleeders on both pelvic sidewalls by the previous IP ligaments and running [id number] suture of 0 Vicryl were placed in the sites for hemostasis. The pelvis was irrigated and suctioned. Hemostasis was confirmed. The Ivan O retractor was removed. The edges of the peritoneum were then grasped and they were closed with 0 Vicryl suture in running continuous fashion. The edges of the fascia were grasped with 2 Franky clamps. The On-Q pump trocars were placed on each side superior to inferiorly beneath the fascia and above the muscle bellies, and the catheters remained in place. The fascia was closed with a #1 double looped PDS suture starting from the superior edge down to the inferior edge. The subcutaneous tissue was irrigated and suctioned, and noted to be hemostatic prior to approximation with 3-0 plain gut. The catheters from the On-Q pumps were threaded through the trocars and then these were removed intact, and the catheters were flushed with ropivacaine. The skin was then closed with sander. The surgery was terminated. No anesthetic or surgical complications. Job ID: [id number]
[2018-06-13] MEDS: HumaLOG 300 UNITS/3 ML VIAL SC PRN (23:46)
[2018-06-14 00:12] VITALS: BMI 34.1
[2018-06-14] MEDS: Morphine 4 MG/ML VIAL SLOW IVP PRN ×5 (05:01→21:27)
[2018-06-14] MEDS: HumaLOG 300 UNITS/3 ML VIAL SC PRN ×4 (05:04→22:33)
[2018-06-14] MEDS: Lactated Ringer's 1,000 ML IV SCH ×4 (05:05→22:31)
[2018-06-14] MEDS: traMADol HCl 50 MG TAB PO PRN ×3 (05:32→15:43)
[2018-06-14 05:46] LABS: Hemoglobin 11.1 g/dL (12.0-16.0); Mean Corpuscular HGB CONC 32.9 g/dL (32.0-36.0); Mean Corpuscular Hemoglobin 29.1 pg (27.0-31.0); Mean Corpuscular Volume 88.3 fL (78.0-98.0); Mean Platelet Volume 8.6 fL (7.4-10.4); Platelet Count 262 thou/uL (130-400); Red Blood Cell (RBC) Count 3.83 mill/uL (4.20-5.40); White Blood Cell (WBC) Count 19.2 thou/uL (4.8-10.8)
[2018-06-14 05:57] LABS: Anion Gap 17 mmol/L (10-20); BUN (Urea Nitrogen) 33 mg/dL (9.8-20.1); Calc. Creatinine Clearance 48 mL/min (70-130); Calcium 9.2 mg/dL (7.8-10.44); Carbon Dioxide 19 mmol/L (22-29); Chloride 101 mmol/L (98-107); Estimated GFR-MDRD 25; Glucose 489 mg/dL (70-105); Potassium 5.2 mmol/L (3.5-5.1); Sodium 132 mmol/L (136-145)
[2018-06-14] MEDS: Alogliptin 25 MG TAB PO SCH (08:38)
[2018-06-14] MEDS: Amlodipine 10 MG TAB PO SCH (08:42)
[2018-06-14] MEDS: hydrALAZINE 25 MG TAB PO SCH ×3 (08:42→21:30)
[2018-06-14] MEDS: Acetaminophen 325 MG TAB PO PRN ×2 (08:43→15:43)
[2018-06-14] MEDS ORDERED: Insulin Glargine 25 UNITS in Pre-Filled Syringe 1 EACH SC SCH (09:00)
[2018-06-14] MEDS: HYDROcodone/Acetaminophen 7.5/325 mg Tablet PO PRN (18:13)
[2018-06-14] MEDS: Zolpidem Tartrate 5 MG TAB PO PRN (21:27)
[2018-06-14] MEDS: Atorvastatin Calcium 20 MG TAB PO SCH (21:28)
[2018-06-15] MEDS: traMADol HCl 50 MG TAB PO PRN (02:15)
[2018-06-15] MEDS: HumaLOG 300 UNITS/3 ML VIAL SC PRN ×4 (02:17→20:48)
[2018-06-15] MEDS: HYDROcodone/Acetaminophen 7.5/325 mg Tablet PO PRN ×4 (03:45→18:28)
[2018-06-15] MEDS: Morphine 4 MG/ML VIAL SLOW IVP PRN ×2 (06:20→15:17)
[2018-06-15] MEDS: Amlodipine 10 MG TAB PO SCH (09:13)
[2018-06-15] MEDS: Alogliptin 25 MG TAB PO SCH (09:13)
[2018-06-15] MEDS: hydrALAZINE 25 MG TAB PO SCH ×3 (09:14→20:50)
[2018-06-15] MEDS: Insulin Glargine 55 UNITS in Pre-Filled Syringe 1 EACH SC SCH (10:57)
[2018-06-15] MEDS: Lactated Ringer's 1,000 ML IV SCH ×2 (18:35→23:41)
[2018-06-15] MEDS: Zolpidem Tartrate 5 MG TAB PO PRN (20:50)
[2018-06-15] MEDS: Atorvastatin Calcium 20 MG TAB PO SCH (20:51)
[2018-06-16] MEDS: HumaLOG 300 UNITS/3 ML VIAL SC PRN ×5 (00:22→20:42)
[2018-06-16] MEDS: HYDROcodone/Acetaminophen 7.5/325 mg Tablet PO PRN ×5 (01:57→20:35)
[2018-06-16] MEDS: traMADol HCl 50 MG TAB PO PRN (05:42)
[2018-06-16 08:55] LABS: Anion Gap 13 mmol/L (10-20); BUN (Urea Nitrogen) 19 mg/dL (9.8-20.1); Calc. Creatinine Clearance 71 mL/min (70-130); Carbon Dioxide 27 mmol/L (22-29); Chloride 97 mmol/L (98-107); Estimated GFR-MDRD 39; Glucose 226 mg/dL (70-105); Potassium 3.9 mmol/L (3.5-5.1); Sodium 133 mmol/L (136-145)
[2018-06-16] MEDS: Amlodipine 10 MG TAB PO SCH (09:26)
[2018-06-16] MEDS: hydrALAZINE 25 MG TAB PO SCH ×3 (09:26→20:37)
[2018-06-16] MEDS: Alogliptin 25 MG TAB PO SCH (09:26)
[2018-06-16] MEDS: Insulin Glargine 55 UNITS in Pre-Filled Syringe 1 EACH SC SCH (09:27)
[2018-06-16] MEDS: Morphine 4 MG/ML VIAL SLOW IVP PRN (10:13)
--- NOTE | 2018-06-16 10:37 | RAD ---
CHEST PA AND LATERAL: HISTORY: Postop hypoxemia. COMPARISON: 12/24/2017 FINDINGS: The heart size is prominent. There is pulmonary vascular congestion. No lobar consolidation, pneumo thoraces, or pleural effusions are seen. POS: [facility]
[2018-06-16] MEDS: Dextrose 5 %-0.45 % NaCl 1,000 ML IV SCH (10:45)
[2018-06-16] MEDS: Lactated Ringer's 1,000 ML IV SCH (11:27)
--- NOTE | 2018-06-16 13:02 | CT ---
CT ANGIOGRAM CHEST WITH CONTRAST: Date: 06/16/18 HISTORY: Low O2 sats. Evaluate for embolism. COMPARISON: Chest radiograph same date. FINDINGS: CT angiogram of the chest performed after the intravenous administration of contrast. 3D rendering pr ovided. No proximal or segmental pulmonary arterial filling defect. Pulmonary trunk size is enlarged, measuring 31 mm. No pericardial effusion. No reflux of contrast of the suprahepatic IVC. No mediastinal adenopathy. No hilar adenopathy. No axillary or internal mammary adenopathy. Limited evaluation of upper abdomen demonstrates what appears to be a possible nodule in the right ad renal gland, incompletely evaluated. There is mild pulmonary edema. No pneumothorax or large effusion. No acute osseous abnormality. IMPRESSION: 1. No proximal or segmental pulmonary arterial filling defect. 2. Cardiomegaly with mild pulmonary edema. 3. Dilated main pulmonary trunk suggesting pulmonary arterial hypertension. 4. Small mass at right adrenal gland, incompletely evaluated, although appears similar back to the 0 08/17/17 examination and may reflect an adenoma. POS: [facility]
[2018-06-16] MEDS: Atorvastatin Calcium 20 MG TAB PO SCH (20:37)
[2018-06-16] MEDS: Docusate Calcium (SURFAK) 240 MG CAP PO SCH (20:37)
[2018-06-16] MEDS: Zolpidem Tartrate 5 MG TAB PO PRN (20:43)
[2018-06-16] MEDS ORDERED: Enoxaparin Sodium 40 MG/0.4 ML SYRINGE SC SCH (21:00)
--- NOTE | 2018-06-16 23:13 | CON ---
DATE OF CONSULTATION: HISTORY OF PRESENT ILLNESS: Eddy Ferguson is a 53-year-old morbidly obese female, 5 feet 7 inches, 217 pounds, BMI 34, who this morning was found to have low oxygen saturation as per the nurses, sats were in the 80s. On the 3 L nasal oxygen, her sats were 95, respirations 16, temperature 98, blood pressure was 140\72_. She denies any difficulty breathing, though she is unable to cough any sputum up. She had an emergency chest x-ray taken post hysterectomy and bilateral oophorectomy, which showed some kind of haziness in the right lung. She says she has never smoked. There is no prior history of TB, pneumonia, or bronchial asthma. PAST MEDICAL HISTORY: Pertinent for diabetes, hypertension, hyperlipidemia, and chronic renal failure. PAST SURGICAL HISTORY: Tubal, appendix. MEDICATIONS: She has a long list of medicine from home which has included; 1. Glipizide. 2. Protonix 40. 3. Hydralazine. 4. Zoloft. 5. Onglyza one tab a day. 6. Insulin. 7. Norvasc 10 mg a day. 8. Atorvastatin 20. 9. Metoprolol 25 once a day. REVIEW OF SYSTEM: Unremarkable. PHYSICAL EXAMINATION: VITAL SIGNS: Sats are 95 on 3 L, respirations 16, temperature 98, blood pressure 126/68. CHEST: Decreased breath sounds. No wheezing. CARDIAC: Normal S1 and S2. No gallops. ABDOMEN: Soft. No masses. LABORATORY DATA: Creatinine 1.40. White count is 19,000. H and H 11 and 39, and platelet count is normal. IMPRESSION: 1. Abnormal chest x-ray, possibly pneumonia, possibly pleural effusion. 2. Hypoxemia. 3. Morbid obesity. 4. Leukocytosis. 5. Chronic renal failure. 6. Diabetes. 7. Hypertension. CT angio being ordered. Started nebs, steroids, and antibiotics. Further recommendation after reviewing the CT. Consultation note, 70 minutes, 50% with direct patient care. Job ID: [id number] MTDD
[2018-06-17] MEDS: Dextrose 5 %-0.45 % NaCl 1,000 ML IV SCH (00:09)
[2018-06-17] MEDS: HumaLOG 300 UNITS/3 ML VIAL SC PRN ×2 (00:55→05:17)
[2018-06-17] MEDS: HYDROcodone/Acetaminophen 7.5/325 mg Tablet PO PRN ×2 (02:42→08:40)
[2018-06-17 06:45] LABS: #Eosinphils 0.2 thou/uL (0.0-0.7); #Lymphocytes 2.8 thou/uL (1.20-3.40); #Neutrophils 10.9 thou/uL (1.40-6.50); %Basophils 0.1 % (0.0-1.0); %Eosinophils 1.2 % (0.0-10.0); %Lymphocytes 18.8 % (21.0-51.0); %Monocytes 6.7 % (0.0-10.0); %Neutrophils 73.3 % (42.0-75.0); Hemoglobin 10.6 g/dL (12.0-16.0); Mean Corpuscular Hemoglobin 28.7 pg (27.0-31.0); Mean Platelet Volume 7.9 fL (7.4-10.4); Platelet Count 303 thou/uL (130-400); RBC Distribution Width 12.6 % (11.5-14.5); Red Blood Cell (RBC) Count 3.68 mill/uL (4.20-5.40); White Blood Cell (WBC) Count 14.9 thou/uL (4.8-10.8)
[2018-06-17 07:04] LABS: Anion Gap 14 mmol/L (10-20); BUN (Urea Nitrogen) 24 mg/dL (9.8-20.1); Calc. Creatinine Clearance 71 mL/min (70-130); Calcium 9.1 mg/dL (7.8-10.44); Carbon Dioxide 29 mmol/L (22-29); Chloride 97 mmol/L (98-107); Estimated GFR-MDRD 39; Glucose 163 mg/dL (70-105); Potassium 3.5 mmol/L (3.5-5.1); Sodium 136 mmol/L (136-145)
[2018-06-17] MEDS: hydrALAZINE 25 MG TAB PO SCH (08:40)
[2018-06-17] MEDS: Alogliptin 25 MG TAB PO SCH (08:40)
[2018-06-17] MEDS: Docusate Calcium (SURFAK) 240 MG CAP PO SCH (08:40)
[2018-06-17] MEDS: Amlodipine 10 MG TAB PO SCH (08:40)
[2018-06-17] MEDS: Insulin Glargine 55 UNITS in Pre-Filled Syringe 1 EACH SC SCH (08:41)
[2018-06-17] MEDS ORDERED: Lorazepam 0.5 MG TAB PO PRN (08:53)
[2018-06-17] MEDS ORDERED: Lorazepam 1 MG TAB PO PRN (08:59)
[2018-06-17 11:54] VITALS: BP 146/76; TEMP 98.4
--- NOTE | 2018-06-17 19:10 | HP ---
SUBJECTIVE: Eddy Ferguson is a 53-year-old female, who was hypoxic post hysterectomy. Sats are now 94% to 95% on room air. She is better. She denies any coughing or wheezing. OBJECTIVE: VITAL SIGNS: Temperature is 98 and blood pressure 113/74. CHEST: This morning reveals no wheezing or crackles. CARDIAC: Normal S1 and S2. No gallops or masses. LABORATORY DATA: BNP was normal. Creatinine 1.4. White count 14,000. IMPRESSION: 1. Status post hysterectomy. 2. Hypoxemia. No evidence of pulmonary embolism. 3. Obesity. 4. Probably sleep apnea. 5. Probably bronchitis, abnormal CT x-ray. PLAN: She is going to be discharged home on antibiotics for 5 days. Follow up with the primary care physician. See in the office as needed. She may require outpatient sleep study. Job ID: [id number]
--- NOTE | 2018-06-18 02:49 | DIS ---
DATE OF ADMISSION: 06/13/2018 DATE OF DISCHARGE: 06/17/2018 DIAGNOSES: 1. Bilateral serous cystadenoma tumors of the ovaries. 2. Uterine fibroids. COMORBID HISTORY: 1. Adult-onset diabetes. 2. Chronic renal insufficiency. 3. Chronic hypertension. 4. Hyperlipidemia. 5. Postoperative hypoxemia, resolved. PROCEDURES PERFORMED: 1. Total abdominal hysterectomy and bilateral salpingo-oophorectomy. 2. CT angio of the chest and chest x-ray. Intraoperative consult was with Pulmonary, Dr. Felix. SUMMARY OF HOSPITAL COURSE: Ms. Ferguson is a 53-year-old white female who had bilateral adnexal masses ranged from 10 to 12 cm in size. She had pelvic pain associated with this. She has comorbid history of adult-onset diabetes, chronic renal insufficiency along with hyperlipidemia and underwent a total abdominal hysterectomy with BSO on 06/13. Postoperatively, the patient remained with stable vital signs. Postoperative hematocrit was appropriately 34%. She had adequate urine output. She had some lability in her glucose, but this was managed with aggressive sliding scale initiation for long-acting insulin 24-hour coverage with Lantus. She began ambulating and voiding on postoperative day #1. Her diet was slowly advanced and was tolerated. Postoperative pain control was managed with On-Q pump and oral and IV narcotics as needed. The patient did have notable postoperative hypoxia on room air with O2 saturations in the low 80s. She had been using incentive spirometry and was ambulating. She had no symptoms related to the hypoxic breathing. Secondary to this, Pulmonary consult was obtained with Dr. Felix. The patient had a chest x-ray, PA and lateral, shows some haziness in the right lower lung brice. She had a CT angio of the chest to rule out pulmonary emboli and this was negative. She did have some evidence of some prominent pulmonary vasculature, which felt possibly related to maybe sleep apnea. She received one dose of Medrol 40 mg IV and one dose of Levaquin by Pulmonary Service and eventually, the patient improved and had O2 saturations in the low to mid 90s on room air on postoperative day #4 and was discharged home on 06/17. Pathology revealed benign serous cystadenoma of the ovary and benign uterine fibroids. She is planning to have her sander removed on postoperative day #10. She is to resume her maintenance medications for her diabetes and hypertension, and she will complete a course of antibiotics with Levaquin 750 mg daily for possible early pneumonia treated by the Pulmonary Service. Job ID: [id number]
== END 2018-06-17 13:06 | disposition home or self-care (01) | DRG 742 ==
LOC: SURG A 06-13 09:55
PROVIDERS: ADMIT Obstetrics & Gynecology; ATTEND Obstetrics & Gynecology
PROC: 0UT90ZZ Resection of Uterus, Open Approach (ICD-10-PCS; principal; 2018-06-13)
PROC: 0UT20ZZ Resection of Bilateral Ovaries, Open Approach (ICD-10-PCS; 2018-06-13)
PROC: 0UT70ZZ Resection of Bilateral Fallopian Tubes, Open Approach (ICD-10-PCS; 2018-06-13)
DX: D27.1 Benign neoplasm of left ovary (principal); J18.9 Pneumonia, unspecified organism; D27.0 Benign neoplasm of right ovary; D25.9 Leiomyoma of uterus, unspecified; E78.5 Hyperlipidemia, unspecified; E11.22 Type 2 diabetes mellitus with diabetic chronic kidney disease; I12.9 Hypertensive chronic kidney disease with stage 1 through stage 4 chronic kidney disease, or unspecified chronic kidney disease; N18.9 Chronic kidney disease, unspecified; Z68.34 Body mass index [BMI] 34.0-34.9, adult; G47.30 Sleep apnea, unspecified; R09.02 Hypoxemia; E66.01 Morbid (severe) obesity due to excess calories; Z79.4 Long term (current) use of insulin
CPT/HCPCS: 36415; 36416; 71046; 71275; 80048; 83880; 85025; 85027; 88112; 88307; 94640; J0131; J1100; J1650; J1815; J1956; J2270; J2405; J2550; J2704; J2795; J2920; J3010; J7620; S0028

== ENCOUNTER 2020-02-27 08:08 | Outpatient (CLI) | payer MEDICARE ==
--- NOTE | 2020-02-27 09:14 | MMO ---
Bilateral MAMMO Bilat Screen [facility]. CLINICAL HISTORY: Patient is 55 years old and is seen for screening. The patient has the following family history of breast cancer: aunt, at age 68. The patient has no personal history of cancer. VIEWS: The views performed were: bilateral craniocaudal with tomosynthesis and bilateral mediolateral oblique with tomosynthesis. FILMS COMPARED: The present examination has been compared to prior imaging studies performed at [facility] on 08/26/2000, 01/16/2014, 10/29/2016 and 02/02/2018. This study has been interpreted with the assistance of computer-aided detection. MAMMOGRAM FINDINGS: There are scattered fibroglandular densities. Benign calcifications are noted bilaterally. There are no suspicious masses, suspicious calcifications, or new areas of architectural distortion. IMPRESSION: THERE IS NO MAMMOGRAPHIC EVIDENCE OF MALIGNANCY. A ROUTINE FOLLOW-UP MAMMOGRAM IN 1 YEAR IS RECOMMENDED. THE RESULTS OF THIS EXAM WERE SENT TO THE PATIENT. ACR BI-RADS Category 2 - Benign finding MAMMOGRAPHY NOTE: 1. A negative mammogram report should not delay a biopsy if a dominant of clinically suspicious mass is present. 2. Approximately 10% to 15% of breast cancers are not detected by mammography. 3. Adenosis and dense breasts may obscure an underlying neoplasm. Reported by: CHARO ANDERSON MD Electonically Signed: [id number]
== END 2020-02-27 08:09 | disposition home or self-care (01) ==
LOC: BICMAMMO 08:08
PROVIDERS: ATTEND Family Medicine
DX: Z12.31 Encounter for screening mammogram for malignant neoplasm of breast (principal); Z80.3 Family history of malignant neoplasm of breast
CPT/HCPCS: 77063; 77067

== ENCOUNTER 2020-04-18 12:26 | Outpatient (CLI) | payer MEDICARE ==
--- NOTE | 2020-04-18 13:09 | RAD ---
XR Shoulder Rt 3 View STANDARD: 04/18/2020 12:56 PM CLINICAL INDICATION: Right shoulder pain. COMPARISON: None. FINDINGS: Bones: No acute fracture is evident. Small bone island is seen within the humeral head. Glenohumeral joint: Normal alignment. AC joint: There is mild AC joint hypertrophy. Visualized lung: Clear. Soft tissues: Within normal limits. IMPRESSION: No acute osseous abnormality.
== END 2020-04-18 12:27 | disposition home or self-care (01) ==
LOC: BICRAD 12:26
PROVIDERS: ATTEND Family Medicine
DX: M25.511 Pain in right shoulder (principal)

== ENCOUNTER 2020-05-29 12:32 | Outpatient (CLI) | payer MEDICARE ==
--- NOTE | 2020-05-29 12:48 | RAD ---
EXAM: Chest PA and lateral: HISTORY: Dyspnea on exertion, worsening COMPARISON: 12/24/2017 FINDINGS: Minimal stable increased bronchovascular markings bilaterally. Heart size:Within normal limits. Lungs:Clear of acute process. No confluent pneumonia, overt edema, pleural effusion, or other acute process. IMPRESSION: No significant acute intrathoracic disease. Stable-appearing chest.
== END 2020-05-29 12:33 | disposition home or self-care (01) ==
LOC: BICRAD 12:32
PROVIDERS: ATTEND Family Medicine
DX: R06.09 Other forms of dyspnea (principal)
CPT/HCPCS: 36415; 71046; 83880; 84484

== ENCOUNTER 2021-02-12 16:13 | Inpatient (IN) | payer MEDICARE ==
[2021-02-12] MEDS ORDERED: cefTRIAXone\\ROCEPHIN 2 GM VIAL ONE (16:40)
[2021-02-12 16:48] LABS: Hemoglobin 11.6 g/dL (12.0-16.0); Mean Corpuscular HGB CONC 33.5 g/dL (32.0-36.0); Mean Corpuscular Hemoglobin 28.5 pg (27.0-31.0); Mean Corpuscular Volume 85.1 fL (78.0-98.0); Platelet Count 181 thou/uL (130-400); RBC Distribution Width 13.9 % (11.5-14.5); Red Blood Cell (RBC) Count 4.06 mill/uL (4.20-5.40); White Blood Cell (WBC) Count 10.8 thou/uL (4.8-10.8)
[2021-02-12 16:59] LABS: PTT 30.9 sec (22.9-36.1); Prothrombin Time 12.9 sec (12.0-14.7)
[2021-02-12] MEDS ORDERED: Nitroglycerin 2% Ointment 1 INCH/1 GM Packet ONE (16:59)
[2021-02-12] MEDS ORDERED: Aspirin Chewable 81 MG TAB ONE (16:59)
[2021-02-12 17:07] LABS: Bacteria/HPF None Seen HPF (None Seen); Bilirubin Negative (Negative); Blood, Urine 1+ (Negative); Clarity Clear (Clear); Glucose, Urine (Dipstick) Greater than 1000 mg/dL (Negative); Ketone, Urine Negative (Negative); Leukocyte Negative Leu/uL (Negative); Nitrite Negative (Negative); Protein, Urine (Dipstick) 100 mg/dL (Neg-Trace); RBC/HPF 0-3 HPF (0-3); Specific Gravity, Urine 1.013 (1.002-1.036); Squamous Epithelial 0-3 HPF (0-3); Urobilinogen Normal mg/dL (Less than 2); WBC/HPF None Seen HPF (0-3); pH, Urine 5.5 (5.0-9.0)
[2021-02-12 17:13] LABS: Band 7 % (5-11); Eosinophils 2 % (0-10); Lymphocytes 13 % (21-51); MDiff Complete? YES; Metamyelocyte 1 % (0-0); Monocytes 3 % (0-10); Myelocyte 1 % (0-0); Neutrophil 72 % (42-75); Platelet Morphology Comment Appears Adequate; Polychromasia SLIGHT = 2-3 cells (100X) (0-2/hpf)
[2021-02-12 17:16] LABS: ALT (SGPT) 30 U/L (8-55); AST (SGOT) 24 U/L (5-34); Albumin 4.3 g/dL (3.5-5.0); Alkaline Phosphatase 119 U/L (40-110); Anion Gap 17 mmol/L (10-20); BUN (Urea Nitrogen) 48 mg/dL (9.8-20.1); Bilirubin, Total 0.3 mg/dL (0.2-1.2); Calc. Creatinine Clearance 0 mL/min (70-130); Carbon Dioxide 23 mmol/L (22-29); Chloride 100 mmol/L (98-107); Globulin 4.2 g/dL (2.4-3.5); Glucose 360 mg/dL (70-105); Protein, Total 8.5 g/dL (6.0-8.3); Sodium 136 mmol/L (136-145)
[2021-02-12] MEDS ORDERED: Azithromycin 500 MG VIAL ONE (18:00)
[2021-02-12] MEDS ORDERED: Ketorolac Tromethamine 30 MG/ML VIAL ONE (18:36)
[2021-02-12 18:45] LABS: SARS-CoV-2 NAA Rapid Test DETECTED (NotDetected)
[2021-02-12 20:17] LABS: Lactic Acid 1.7 mmol/L (0.5-2.2)
[2021-02-12 20:24] LABS: Troponin I 0.041 ng/mL (< 0.028)
[2021-02-12] MEDS: Acetaminophen 325 MG TAB PO PRN (21:32)
[2021-02-13] MEDS: Benzonatate 100 MG CAP PO PRN ×3 (02:06→12:45)
[2021-02-13] MEDS: traMADol HCl 50 MG TAB PO PRN ×3 (02:06→22:35)
[2021-02-13] MEDS ORDERED: Dextrose 50% Abboject 50 ML SYRINGE SLOW IVP PRN (02:55)
[2021-02-13] MEDS ORDERED: Dextrose 5% in Water 1,000 ML IV PRN (02:55)
[2021-02-13] MEDS ORDERED: Furosemide 40 MG/4 ML VIAL SLOW IVP SCH (03:15)
[2021-02-13] MEDS: Acetaminophen 325 MG TAB PO PRN ×4 (04:43→23:48)
[2021-02-13] MEDS: Enoxaparin Sodium 40 MG/0.4 ML SYRINGE SC SCH ×2 (04:49→14:50)
[2021-02-13 05:28] LABS: Anion Gap 17 mmol/L (10-20); BUN (Urea Nitrogen) 40 mg/dL (9.8-20.1); Calc. Creatinine Clearance 48 mL/min (70-130); Calcium 9.1 mg/dL (7.8-10.44); Carbon Dioxide 21 mmol/L (22-29); Chloride 105 mmol/L (98-107); Glucose 192 mg/dL (70-105); Magnesium 1.5 mg/dL (1.6-2.6); Potassium 3.5 mmol/L (3.5-5.1); Sodium 139 mmol/L (136-145)
[2021-02-13 05:34] LABS: Band 4 % (5-11); Eosinophils 1 % (0-10); Hemoglobin 11.2 g/dL (12.0-16.0); Lymphocytes 12 % (21-51); MDiff Complete? YES; Mean Corpuscular HGB CONC 33.9 g/dL (32.0-36.0); Mean Corpuscular Hemoglobin 29.2 pg (27.0-31.0); Mean Corpuscular Volume 86.1 fL (78.0-98.0); Mean Platelet Volume 9.2 fL (7.4-10.4); Metamyelocyte 1 % (0-0); Monocytes 13 % (0-10); Neutrophil 69 % (42-75); Platelet Count 197 thou/uL (130-400); Platelet Morphology Comment Appears Adequate; RBC Distribution Width 14.3 % (11.5-14.5); RBC Morphology Normal; Red Blood Cell (RBC) Count 3.84 mill/uL (4.20-5.40); White Blood Cell (WBC) Count 10.3 thou/uL (4.8-10.8)
[2021-02-13] MEDS: HumaLOG 300 UNITS/3 ML VIAL SC PRN ×2 (06:25→16:55)
[2021-02-13] MEDS: Gabapentin 300 MG CAP PO SCH ×2 (07:56→22:36)
[2021-02-13] MEDS: Dexamethasone 4 mg/ml Vial SLOW IVP SCH (07:57)
[2021-02-13] MEDS: Cholecalciferol (Vitamin D3) 400 UNITS TAB PO SCH (07:57)
[2021-02-13] MEDS: Zinc Sulfate 220 MG CAP PO SCH (07:57)
[2021-02-13] MEDS: guaiFENesin ER 600 MG TAB PO SCH ×2 (07:57→22:36)
[2021-02-13] MEDS: Ascorbic Acid 500 mg Chewable Tablet PO SCH (07:57)
[2021-02-13] MEDS: Amlodipine 10 MG TAB PO SCH (07:58)
[2021-02-13 09:26] LABS: Amphetamine Not Detected (NotDetected); Barbiturates Screen Not Detected (NotDetected); Benzodiazepine Screen Not Detected (NotDetected); Cocaine Metabolite Screen Not Detected (NotDetected); Methadone Not Detected (NotDetected); Methamphetamine Not Detected (NotDetected); Opiate Screen Not Detected (NotDetected); Oxycodone Screen Not Detected (NotDetected); Phencyclidine (PCP) Not Detected (NotDetected); THC/Cannabinoid Screen Not Detected (NotDetected); Tricyclic Screen Not Detected (NotDetected)
[2021-02-13] MEDS ORDERED: Lantus 1000 UNITS/10 ML VIAL SC SCH ×2 (12:09→21:30)
[2021-02-13] MEDS: HumuLIN 70/30 (300 UNITS/3 ML VIAL) SC SCH (16:54)
[2021-02-13 17:40] LABS: Glucose 783 mg/dL (70-105)
[2021-02-13 20:40] LABS: Anion Gap 21 mmol/L (10-20); BUN (Urea Nitrogen) 43 mg/dL (9.8-20.1); Calc. Creatinine Clearance 41 mL/min (70-130); Calcium 9.1 mg/dL (7.8-10.44); Carbon Dioxide 22 mmol/L (22-29); Chloride 95 mmol/L (98-107); Glucose 514 mg/dL (70-105); Potassium 4.4 mmol/L (3.5-5.1); Sodium 134 mmol/L (136-145)
[2021-02-13] MEDS ORDERED: HumaLOG 300 UNITS/3 ML VIAL SC SCH (21:30)
[2021-02-13] MEDS ORDERED: glipiZIDE 10 MG TAB PO SCH (21:30)
[2021-02-13] MEDS: Temazepam 15 MG CAP PO PRN (22:34)
[2021-02-13] MEDS: Atorvastatin Calcium 40 MG TAB PO SCH (22:36)
[2021-02-14] MEDS: Enoxaparin Sodium 40 MG/0.4 ML SYRINGE SC SCH ×2 (05:05→17:36)
[2021-02-14] MEDS: Ondansetron ODT 4 MG TAB PO PRN ×2 (05:05→21:13)
[2021-02-14] MEDS: HumuLIN 70/30 (300 UNITS/3 ML VIAL) SC SCH ×2 (08:24→16:16)
[2021-02-14] MEDS: Bupropion 150 MG XL TAB PO SCH (08:26)
[2021-02-14] MEDS: Cholecalciferol (Vitamin D3) 400 UNITS TAB PO SCH (08:26)
[2021-02-14] MEDS: Zinc Sulfate 220 MG CAP PO SCH (08:26)
[2021-02-14] MEDS: Amlodipine 10 MG TAB PO SCH (08:27)
[2021-02-14] MEDS: Ascorbic Acid 500 mg Chewable Tablet PO SCH (08:27)
[2021-02-14] MEDS: guaiFENesin ER 600 MG TAB PO SCH ×2 (08:27→21:04)
[2021-02-14] MEDS: Gabapentin 300 MG CAP PO SCH ×2 (08:28→21:04)
[2021-02-14] MEDS: Pioglitazone HCl 45 MG TAB PO SCH (08:28)
[2021-02-14] MEDS: Dexamethasone 4 mg/ml Vial SLOW IVP SCH (08:30)
[2021-02-14] MEDS: traMADol HCl 50 MG TAB PO PRN (12:18)
[2021-02-14] MEDS: cefTRIAXone\\ROCEPHIN 1 GM in Sodium Chloride 0.9% 100 ML IVPB SCH (15:00)
[2021-02-14] MEDS: Benzonatate 100 MG CAP PO PRN (15:35)
[2021-02-14] MEDS: HumaLOG 300 UNITS/3 ML VIAL SC PRN (16:17)
[2021-02-14] MEDS: Atorvastatin Calcium 40 MG TAB PO SCH (21:03)
[2021-02-14] MEDS: Temazepam 15 MG CAP PO PRN (23:16)
[2021-02-15] MEDS: traMADol HCl 50 MG TAB PO PRN ×2 (03:49→13:34)
[2021-02-15 06:01] LABS: #Basophils 0.1 thou/uL (0.0-0.2); #Neutrophils 7.1 thou/uL (1.40-6.50); %Basophils 0.6 % (0.0-1.0); %Eosinophils 0.3 % (0.0-10.0); %Lymphocytes 19.6 % (21.0-51.0); %Monocytes 9.7 % (0.0-10.0); %Neutrophils 69.9 % (42.0-75.0); Hemoglobin 12.9 g/dL (12.0-16.0); Mean Corpuscular HGB CONC 33.7 g/dL (32.0-36.0); Mean Corpuscular Volume 86.2 fL (78.0-98.0); Mean Platelet Volume 9.1 fL (7.4-10.4); Platelet Count 214 thou/uL (130-400); RBC Distribution Width 13.9 % (11.5-14.5); Red Blood Cell (RBC) Count 4.44 mill/uL (4.20-5.40); White Blood Cell (WBC) Count 10.1 thou/uL (4.8-10.8)
[2021-02-15 06:20] LABS: Anion Gap 18 mmol/L (10-20); BUN (Urea Nitrogen) 46 mg/dL (9.8-20.1); CRP (Inflammatory) 6.73 mg/dL (= or < 0.5); Calc. Creatinine Clearance 48 mL/min (70-130); Calcium 8.9 mg/dL (7.8-10.44); Carbon Dioxide 25 mmol/L (22-29); Chloride 98 mmol/L (98-107); Glucose 76 mg/dL (70-105); Potassium 3.6 mmol/L (3.5-5.1); Sodium 137 mmol/L (136-145)
[2021-02-15] MEDS: Enoxaparin Sodium 40 MG/0.4 ML SYRINGE SC SCH ×2 (06:27→17:16)
[2021-02-15] MEDS: Acetaminophen 325 MG TAB PO PRN (06:28)
[2021-02-15] MEDS: Benzonatate 100 MG CAP PO PRN ×2 (06:29→21:17)
[2021-02-15] MEDS: HumuLIN 70/30 (300 UNITS/3 ML VIAL) SC SCH ×2 (08:30→16:38)
[2021-02-15] MEDS: Bupropion 150 MG XL TAB PO SCH (08:47)
[2021-02-15] MEDS: Ascorbic Acid 500 mg Chewable Tablet PO SCH (08:48)
[2021-02-15] MEDS: Gabapentin 300 MG CAP PO SCH ×2 (08:48→21:13)
[2021-02-15] MEDS: Zinc Sulfate 220 MG CAP PO SCH (08:48)
[2021-02-15] MEDS: guaiFENesin ER 600 MG TAB PO SCH ×2 (08:48→21:13)
[2021-02-15] MEDS: Cholecalciferol (Vitamin D3) 400 UNITS TAB PO SCH (08:48)
[2021-02-15] MEDS: Dexamethasone 4 mg/ml Vial SLOW IVP SCH (08:49)
[2021-02-15] MEDS: Amlodipine 10 MG TAB PO SCH (08:50)
[2021-02-15] MEDS: Pioglitazone HCl 45 MG TAB PO SCH (08:51)
[2021-02-15] MEDS ORDERED: Bisacodyl 10 MG SUPP PR PRN (10:58)
[2021-02-15] MEDS: cefTRIAXone\\ROCEPHIN 1 GM in Sodium Chloride 0.9% 100 ML IVPB SCH (13:34)
[2021-02-15] MEDS: HumaLOG 300 UNITS/3 ML VIAL SC PRN ×2 (17:13→23:20)
[2021-02-15] MEDS: Senokot S 8.6-50 MG TAB PO SCH (21:13)
[2021-02-15] MEDS: Atorvastatin Calcium 40 MG TAB PO SCH (21:14)
[2021-02-15] MEDS: Temazepam 15 MG CAP PO PRN (21:16)
[2021-02-16] MEDS: Guaifenesin DM 100-10/5 ML UDCUP PO PRN ×3 (05:06→18:30)
[2021-02-16] MEDS: Enoxaparin Sodium 40 MG/0.4 ML SYRINGE SC SCH ×2 (05:06→17:19)
[2021-02-16] MEDS: HumaLOG 300 UNITS/3 ML VIAL SC PRN ×4 (07:58→22:36)
[2021-02-16] MEDS: HumuLIN 70/30 (300 UNITS/3 ML VIAL) SC SCH ×2 (07:59→17:19)
[2021-02-16 08:05] LABS: #Lymphocytes 1.7 thou/uL (1.20-3.40); #Neutrophils 7.7 thou/uL (1.40-6.50); %Basophils 0.1 % (0.0-1.0); %Eosinophils 0.2 % (0.0-10.0); %Lymphocytes 16.7 % (21.0-51.0); %Monocytes 9.3 % (0.0-10.0); %Neutrophils 73.7 % (42.0-75.0); Hemoglobin 11.6 g/dL (12.0-16.0); Mean Corpuscular HGB CONC 33.5 g/dL (32.0-36.0); Mean Corpuscular Hemoglobin 28.6 pg (27.0-31.0); Mean Corpuscular Volume 85.4 fL (78.0-98.0); Mean Platelet Volume 10.4 fL (7.4-10.4); Platelet Count 167 thou/uL (130-400); RBC Distribution Width 13.4 % (11.5-14.5); Red Blood Cell (RBC) Count 4.06 mill/uL (4.20-5.40); White Blood Cell (WBC) Count 10.4 thou/uL (4.8-10.8)
[2021-02-16] MEDS: Senokot S 8.6-50 MG TAB PO SCH ×2 (08:17→20:08)
[2021-02-16] MEDS: Zinc Sulfate 220 MG CAP PO SCH (08:17)
[2021-02-16] MEDS: Bupropion 150 MG XL TAB PO SCH (08:17)
[2021-02-16] MEDS: Ascorbic Acid 500 mg Chewable Tablet PO SCH (08:17)
[2021-02-16] MEDS: Gabapentin 300 MG CAP PO SCH ×2 (08:18→20:08)
[2021-02-16] MEDS: Cholecalciferol (Vitamin D3) 400 UNITS TAB PO SCH (08:19)
[2021-02-16] MEDS: Dexamethasone 4 mg/ml Vial SLOW IVP SCH (08:19)
[2021-02-16] MEDS: Amlodipine 10 MG TAB PO SCH (08:19)
[2021-02-16 08:21] LABS: Anion Gap 15 mmol/L (10-20); BUN (Urea Nitrogen) 48 mg/dL (9.8-20.1); CRP (Inflammatory) 5.24 mg/dL (= or < 0.5); Calc. Creatinine Clearance 50 mL/min (70-130); Calcium 8.6 mg/dL (7.8-10.44); Carbon Dioxide 26 mmol/L (22-29); Chloride 99 mmol/L (98-107); Glucose 206 mg/dL (70-105); Potassium 4.1 mmol/L (3.5-5.1); Sodium 136 mmol/L (136-145)
[2021-02-16] MEDS: Pioglitazone HCl 45 MG TAB PO SCH (08:30)
[2021-02-16] MEDS: guaiFENesin ER 600 MG TAB PO SCH ×2 (08:30→20:07)
[2021-02-16] MEDS: Polyethylene Glycol 3350 17 GM Packet PO SCH (08:36)
[2021-02-16] MEDS: cefTRIAXone\\ROCEPHIN 1 GM in Sodium Chloride 0.9% 100 ML IVPB SCH (14:19)
[2021-02-16] MEDS: Benzonatate 100 MG CAP PO PRN (17:19)
[2021-02-16] MEDS: Atorvastatin Calcium 40 MG TAB PO SCH (20:08)
[2021-02-16] MEDS: traMADol HCl 50 MG TAB PO PRN (20:08)
[2021-02-16] MEDS: Temazepam 15 MG CAP PO PRN (21:37)
[2021-02-17] MEDS: Guaifenesin DM 100-10/5 ML UDCUP PO PRN ×4 (01:00→20:56)
[2021-02-17] MEDS: Acetaminophen 325 MG TAB PO PRN (01:00)
[2021-02-17] MEDS: Melatonin 3 MG TAB PO PRN (04:17)
[2021-02-17] MEDS: Benzonatate 100 MG CAP PO PRN ×2 (04:17→11:32)
[2021-02-17] MEDS: Enoxaparin Sodium 40 MG/0.4 ML SYRINGE SC SCH ×2 (05:06→17:01)
[2021-02-17 08:19] LABS: Anion Gap 13 mmol/L (10-20); BUN (Urea Nitrogen) 42 mg/dL (9.8-20.1); Calc. Creatinine Clearance 51 mL/min (70-130); Calcium 8.7 mg/dL (7.8-10.44); Carbon Dioxide 27 mmol/L (22-29); Chloride 99 mmol/L (98-107); Glucose 127 mg/dL (70-105); Potassium 4.3 mmol/L (3.5-5.1); Sodium 135 mmol/L (136-145)
[2021-02-17] MEDS: HumuLIN 70/30 (300 UNITS/3 ML VIAL) SC SCH ×2 (08:30→17:01)
[2021-02-17] MEDS: Zinc Sulfate 220 MG CAP PO SCH (08:43)
[2021-02-17] MEDS: Ascorbic Acid 500 mg Chewable Tablet PO SCH (08:43)
[2021-02-17] MEDS: Gabapentin 300 MG CAP PO SCH ×2 (08:44→20:57)
[2021-02-17] MEDS: Bupropion 150 MG XL TAB PO SCH (08:45)
[2021-02-17] MEDS: guaiFENesin ER 600 MG TAB PO SCH ×2 (08:45→20:57)
[2021-02-17] MEDS: Pioglitazone HCl 45 MG TAB PO SCH (08:45)
[2021-02-17] MEDS: Senokot S 8.6-50 MG TAB PO SCH ×2 (08:45→20:57)
[2021-02-17] MEDS: Amlodipine 10 MG TAB PO SCH (08:45)
[2021-02-17] MEDS: Dexamethasone 4 mg/ml Vial SLOW IVP SCH (08:45)
[2021-02-17] MEDS: Cholecalciferol (Vitamin D3) 400 UNITS TAB PO SCH (08:53)
[2021-02-17] MEDS: Polyethylene Glycol 3350 17 GM Packet PO SCH (08:53)
[2021-02-17] MEDS: HumaLOG 300 UNITS/3 ML VIAL SC PRN ×2 (11:32→21:44)
[2021-02-17] MEDS: cefTRIAXone\\ROCEPHIN 1 GM in Sodium Chloride 0.9% 100 ML IVPB SCH (13:56)
[2021-02-17] MEDS ORDERED: Cepastat Lozenges 1 LOZ PO PRN (16:22)
[2021-02-17] MEDS: traMADol HCl 50 MG TAB PO PRN (17:05)
[2021-02-17] MEDS: Temazepam 15 MG CAP PO PRN (20:57)
[2021-02-17] MEDS: Atorvastatin Calcium 40 MG TAB PO SCH (20:57)
[2021-02-17] MEDS ORDERED: Morphine 2 MG/ML VIAL SLOW IVP SCH (21:30)
[2021-02-18 05:30] LABS: #Basophils 0.1 thou/uL (0.0-0.2); #Lymphocytes 1.5 thou/uL (1.20-3.40); #Monocytes 0.9 thou/uL (0.11-0.59); #Neutrophils 9.6 thou/uL (1.40-6.50); %Basophils 0.5 % (0.0-1.0); %Eosinophils 0.2 % (0.0-10.0); %Lymphocytes 12.5 % (21.0-51.0); %Monocytes 7.7 % (0.0-10.0); %Neutrophils 79.1 % (42.0-75.0); Hemoglobin 11.5 g/dL (12.0-16.0); Mean Corpuscular HGB CONC 32.9 g/dL (32.0-36.0); Mean Corpuscular Hemoglobin 28.1 pg (27.0-31.0); Mean Corpuscular Volume 85.3 fL (78.0-98.0); Mean Platelet Volume 9.9 fL (7.4-10.4); Platelet Count 180 thou/uL (130-400); RBC Distribution Width 13.5 % (11.5-14.5); White Blood Cell (WBC) Count 12.2 thou/uL (4.8-10.8)
[2021-02-18] MEDS: Enoxaparin Sodium 40 MG/0.4 ML SYRINGE SC SCH ×2 (05:45→17:17)
[2021-02-18] MEDS: hydrALAZINE 20 MG/ML VIAL SLOW IVP PRN ×2 (05:45→20:15)
[2021-02-18 05:50] LABS: Anion Gap 18 mmol/L (10-20); BUN (Urea Nitrogen) 42 mg/dL (9.8-20.1); CRP (Inflammatory) 8.33 mg/dL (= or < 0.5); Calc. Creatinine Clearance 54 mL/min (70-130); Calcium 8.9 mg/dL (7.8-10.44); Carbon Dioxide 24 mmol/L (22-29); Chloride 98 mmol/L (98-107); Glucose 159 mg/dL (70-105); Potassium 4.5 mmol/L (3.5-5.1); Sodium 135 mmol/L (136-145)
[2021-02-18] MEDS: HumuLIN 70/30 (300 UNITS/3 ML VIAL) SC SCH ×2 (08:07→17:12)
[2021-02-18] MEDS: Ascorbic Acid 500 mg Chewable Tablet PO SCH (08:08)
[2021-02-18] MEDS: Dexamethasone 4 mg/ml Vial SLOW IVP SCH ×2 (08:11→17:17)
[2021-02-18] MEDS: Cholecalciferol (Vitamin D3) 400 UNITS TAB PO SCH (08:11)
[2021-02-18] MEDS: Zinc Sulfate 220 MG CAP PO SCH (08:11)
[2021-02-18] MEDS: Bupropion 150 MG XL TAB PO SCH (08:12)
[2021-02-18] MEDS: guaiFENesin ER 600 MG TAB PO SCH ×2 (08:12→20:13)
[2021-02-18] MEDS: Pioglitazone HCl 45 MG TAB PO SCH (08:12)
[2021-02-18] MEDS: Gabapentin 300 MG CAP PO SCH ×2 (08:12→20:13)
[2021-02-18] MEDS: Polyethylene Glycol 3350 17 GM Packet PO SCH (08:13)
[2021-02-18] MEDS: Amlodipine 10 MG TAB PO SCH (08:13)
[2021-02-18] MEDS: Senokot S 8.6-50 MG TAB PO SCH ×2 (08:13→20:12)
[2021-02-18] MEDS: hydrALAZINE 25 MG TAB PO SCH ×3 (08:14→20:13)
[2021-02-18] MEDS: Guaifenesin DM 100-10/5 ML UDCUP PO PRN (08:18)
[2021-02-18] MEDS: Ondansetron PF 4 MG/2 ML Vial IVP PRN (08:51)
[2021-02-18] MEDS: HumaLOG 300 UNITS/3 ML VIAL SC PRN ×4 (09:28→20:35)
[2021-02-18] MEDS: Acetaminophen 325 MG TAB PO PRN (11:54)
[2021-02-18] MEDS: cefTRIAXone\\ROCEPHIN 1 GM in Sodium Chloride 0.9% 100 ML IVPB SCH (13:50)
[2021-02-18] MEDS: Albuterol 200 PUFF (6.7GM INHALER) INH SCH ×2 (13:56→20:18)
[2021-02-18] MEDS: Cepastat Lozenges 1 LOZ PO PRN (17:25)
[2021-02-18] MEDS: Temazepam 15 MG CAP PO PRN (20:12)
[2021-02-18] MEDS: Atorvastatin Calcium 40 MG TAB PO SCH (20:12)
[2021-02-18] MEDS: traMADol HCl 50 MG TAB PO PRN (20:14)
[2021-02-18] MEDS: Lantus 1000 UNITS/10 ML VIAL SC SCH (20:16)
[2021-02-19] MEDS: Albuterol 200 PUFF (6.7GM INHALER) INH SCH ×4 (00:23→20:45)
[2021-02-19] MEDS: Guaifenesin DM 100-10/5 ML UDCUP PO PRN ×3 (00:23→17:33)
[2021-02-19] MEDS: Benzonatate 100 MG CAP PO PRN ×3 (04:10→20:50)
[2021-02-19] MEDS: Melatonin 3 MG TAB PO PRN ×2 (04:12→20:50)
[2021-02-19] MEDS: traMADol HCl 50 MG TAB PO PRN ×2 (04:13→17:50)
[2021-02-19] MEDS: Enoxaparin Sodium 40 MG/0.4 ML SYRINGE SC SCH ×2 (06:24→17:33)
[2021-02-19] MEDS: Dexamethasone 4 mg/ml Vial SLOW IVP SCH ×2 (06:25→17:33)
[2021-02-19] MEDS: Colchicine 0.6 MG TAB PO SCH (07:47)
[2021-02-19] MEDS: Pioglitazone HCl 45 MG TAB PO SCH (07:47)
[2021-02-19] MEDS: Polyethylene Glycol 3350 17 GM Packet PO SCH (07:47)
[2021-02-19] MEDS: Cholecalciferol (Vitamin D3) 400 UNITS TAB PO SCH (07:48)
[2021-02-19] MEDS: hydrALAZINE 25 MG TAB PO SCH ×3 (07:48→20:51)
[2021-02-19] MEDS: Senokot S 8.6-50 MG TAB PO SCH ×2 (07:48→20:51)
[2021-02-19] MEDS: Bupropion 150 MG XL TAB PO SCH (07:48)
[2021-02-19] MEDS: Zinc Sulfate 220 MG CAP PO SCH (07:48)
[2021-02-19] MEDS: guaiFENesin ER 600 MG TAB PO SCH ×2 (07:49→20:51)
[2021-02-19] MEDS: Gabapentin 300 MG CAP PO SCH ×2 (07:49→20:51)
[2021-02-19] MEDS: Amlodipine 10 MG TAB PO SCH (07:49)
[2021-02-19] MEDS: Ascorbic Acid 500 mg Chewable Tablet PO SCH (07:49)
[2021-02-19] MEDS: HumuLIN 70/30 (300 UNITS/3 ML VIAL) SC SCH ×2 (07:50→17:34)
[2021-02-19] MEDS ORDERED: Lorazepam 2 MG/ML VIAL SLOW IVP SCH (09:00)
[2021-02-19] MEDS: Lantus 1000 UNITS/10 ML VIAL SC SCH ×2 (10:10→20:58)
[2021-02-19] MEDS ORDERED: BARICITINIB 1 MG TAB PO SCH (12:30)
[2021-02-19] MEDS: HumaLOG 300 UNITS/3 ML VIAL SC PRN (12:50)
[2021-02-19] MEDS: Morphine 2 MG/ML VIAL SLOW IVP PRN ×2 (13:36→21:21)
[2021-02-19] MEDS: Atorvastatin Calcium 40 MG TAB PO SCH (20:50)
[2021-02-19] MEDS: Doxepin HCl 10 MG CAP PO PRN (23:01)
[2021-02-20] MEDS: Albuterol 200 PUFF (6.7GM INHALER) INH SCH ×4 (01:40→18:24)
[2021-02-20 05:20] LABS: #Lymphocytes 1.4 thou/uL (1.20-3.40); #Monocytes 0.7 thou/uL (0.11-0.59); #Neutrophils 17.3 thou/uL (1.40-6.50); %Eosinophils 0.2 % (0.0-10.0); %Lymphocytes 7.3 % (21.0-51.0); %Monocytes 3.4 % (0.0-10.0); Mean Corpuscular HGB CONC 32.8 g/dL (32.0-36.0); Mean Corpuscular Volume 85.6 fL (78.0-98.0); Mean Platelet Volume 8.8 fL (7.4-10.4); Platelet Count 281 thou/uL (130-400); RBC Distribution Width 13.4 % (11.5-14.5); Red Blood Cell (RBC) Count 3.92 mill/uL (4.20-5.40); White Blood Cell (WBC) Count 19.5 thou/uL (4.8-10.8)
[2021-02-20 05:42] LABS: ALT (SGPT) 42 U/L (8-55); AST (SGOT) 61 U/L (5-34); Albumin 3.8 g/dL (3.5-5.0); Alkaline Phosphatase 88 U/L (40-110); Anion Gap 17 mmol/L (10-20); BUN (Urea Nitrogen) 56 mg/dL (9.8-20.1); Bilirubin, Total 0.5 mg/dL (0.2-1.2); CRP (Inflammatory) 15.03 mg/dL (= or < 0.5); Calc. Creatinine Clearance 45 mL/min (70-130); Calcium 9.4 mg/dL (7.8-10.44); Carbon Dioxide 23 mmol/L (22-29); Chloride 97 mmol/L (98-107); Globulin 4.3 g/dL (2.4-3.5); Glucose 170 mg/dL (70-105); Potassium 4.5 mmol/L (3.5-5.1); Protein, Total 8.1 g/dL (6.0-8.3); Sodium 132 mmol/L (136-145)
[2021-02-20] MEDS: Dexamethasone 4 mg/ml Vial SLOW IVP SCH ×2 (05:45→17:27)
[2021-02-20] MEDS: Enoxaparin Sodium 40 MG/0.4 ML SYRINGE SC SCH ×2 (05:46→18:24)
[2021-02-20] MEDS: Guaifenesin DM 100-10/5 ML UDCUP PO PRN ×2 (05:55→20:45)
[2021-02-20] MEDS: Pioglitazone HCl 45 MG TAB PO SCH (08:47)
[2021-02-20] MEDS: Bupropion 150 MG XL TAB PO SCH (08:47)
[2021-02-20] MEDS: Senokot S 8.6-50 MG TAB PO SCH ×2 (08:47→20:48)
[2021-02-20] MEDS: Polyethylene Glycol 3350 17 GM Packet PO SCH (08:47)
[2021-02-20] MEDS: Ascorbic Acid 500 mg Chewable Tablet PO SCH (08:47)
[2021-02-20] MEDS: Zinc Sulfate 220 MG CAP PO SCH (08:47)
[2021-02-20] MEDS: Colchicine 0.6 MG TAB PO SCH (08:47)
[2021-02-20] MEDS: hydrALAZINE 25 MG TAB PO SCH ×3 (08:49→20:47)
[2021-02-20] MEDS: Cholecalciferol (Vitamin D3) 400 UNITS TAB PO SCH (08:49)
[2021-02-20] MEDS: guaiFENesin ER 600 MG TAB PO SCH ×2 (08:50→20:47)
[2021-02-20] MEDS: Amlodipine 10 MG TAB PO SCH (08:50)
[2021-02-20] MEDS: Gabapentin 300 MG CAP PO SCH ×2 (08:51→20:47)
[2021-02-20] MEDS: BARICITINIB 1 MG TAB PO SCH (08:51)
[2021-02-20] MEDS: HumuLIN 70/30 (300 UNITS/3 ML VIAL) SC SCH ×3 (09:23→17:28)
[2021-02-20] MEDS: Doxycycline 100 MG CAP PO SCH ×2 (09:23→20:46)
[2021-02-20] MEDS: Lantus 1000 UNITS/10 ML VIAL SC SCH ×2 (09:25→20:49)
[2021-02-20] MEDS: HumaLOG 300 UNITS/3 ML VIAL SC PRN ×2 (13:30→17:28)
[2021-02-20] MEDS: traMADol HCl 50 MG TAB PO PRN ×2 (13:39→20:45)
[2021-02-20] MEDS: Mometasone 200 MCG/Formoterol 5 MCG 120 PUFF INHALER INH SCH (19:22)
[2021-02-20] MEDS: Atorvastatin Calcium 40 MG TAB PO SCH (20:46)
[2021-02-20] MEDS: Melatonin 3 MG TAB PO PRN (20:46)
[2021-02-21] MEDS: Doxepin HCl 10 MG CAP PO PRN (00:10)
[2021-02-21] MEDS: Albuterol 200 PUFF (6.7GM INHALER) INH SCH ×4 (00:13→18:02)
[2021-02-21 05:17] LABS: Hemoglobin 11.3 g/dL (12.0-16.0); Mean Corpuscular HGB CONC 33.6 g/dL (32.0-36.0); Mean Corpuscular Hemoglobin 28.7 pg (27.0-31.0); Mean Corpuscular Volume 85.4 fL (78.0-98.0); Mean Platelet Volume 8.9 fL (7.4-10.4); Platelet Count 310 thou/uL (130-400); RBC Distribution Width 13.4 % (11.5-14.5); Red Blood Cell (RBC) Count 3.95 mill/uL (4.20-5.40); White Blood Cell (WBC) Count 16.1 thou/uL (4.8-10.8)
[2021-02-21 05:30] LABS: ALT (SGPT) 52 U/L (8-55); AST (SGOT) 62 U/L (5-34); Albumin 3.8 g/dL (3.5-5.0); Alkaline Phosphatase 96 U/L (40-110); Anion Gap 19 mmol/L (10-20); BUN (Urea Nitrogen) 65 mg/dL (9.8-20.1); Bilirubin, Total 0.5 mg/dL (0.2-1.2); Calc. Creatinine Clearance 51 mL/min (70-130); Calcium 9.7 mg/dL (7.8-10.44); Carbon Dioxide 23 mmol/L (22-29); Chloride 97 mmol/L (98-107); Globulin 4.6 g/dL (2.4-3.5); Glucose 168 mg/dL (70-105); Potassium 4.5 mmol/L (3.5-5.1); Protein, Total 8.4 g/dL (6.0-8.3); Sodium 134 mmol/L (136-145)
[2021-02-21] MEDS: Dexamethasone 4 mg/ml Vial SLOW IVP SCH ×2 (06:06→16:10)
[2021-02-21] MEDS: Enoxaparin Sodium 40 MG/0.4 ML SYRINGE SC SCH ×2 (06:07→17:59)
[2021-02-21 06:13] LABS: Band 4 % (5-11); Lymphocytes 9 % (21-51); MDiff Complete? YES; Metamyelocyte 2 % (0-0); Monocytes 3 % (0-10); Myelocyte 1 % (0-0); Neutrophil 81 % (42-75)
[2021-02-21] MEDS: Mometasone 200 MCG/Formoterol 5 MCG 120 PUFF INHALER INH SCH ×2 (06:44→18:01)
[2021-02-21] MEDS: Cholecalciferol (Vitamin D3) 400 UNITS TAB PO SCH (08:18)
[2021-02-21] MEDS: Doxycycline 100 MG CAP PO SCH ×2 (08:18→21:50)
[2021-02-21] MEDS: Pioglitazone HCl 45 MG TAB PO SCH (08:18)
[2021-02-21] MEDS: Bupropion 150 MG XL TAB PO SCH (08:18)
[2021-02-21] MEDS: Colchicine 0.6 MG TAB PO SCH (08:18)
[2021-02-21] MEDS: Ascorbic Acid 500 mg Chewable Tablet PO SCH (08:19)
[2021-02-21] MEDS: Zinc Sulfate 220 MG CAP PO SCH (08:20)
[2021-02-21] MEDS: guaiFENesin ER 600 MG TAB PO SCH ×2 (08:20→21:50)
[2021-02-21] MEDS: Senokot S 8.6-50 MG TAB PO SCH ×2 (08:20→21:53)
[2021-02-21] MEDS: hydrALAZINE 25 MG TAB PO SCH ×3 (08:20→21:50)
[2021-02-21] MEDS: Gabapentin 300 MG CAP PO SCH ×2 (08:22→21:50)
[2021-02-21] MEDS: Amlodipine 10 MG TAB PO SCH (08:22)
[2021-02-21] MEDS: HumuLIN 70/30 (300 UNITS/3 ML VIAL) SC SCH ×2 (08:24→17:49)
[2021-02-21] MEDS: BARICITINIB 1 MG TAB PO SCH (08:25)
[2021-02-21] MEDS: Lantus 1000 UNITS/10 ML VIAL SC SCH ×3 (08:25→22:24)
[2021-02-21] MEDS: Polyethylene Glycol 3350 17 GM Packet PO SCH (08:26)
[2021-02-21] MEDS: Benzonatate 100 MG CAP PO PRN (08:33)
[2021-02-21] MEDS: Acetaminophen 325 MG TAB PO PRN (08:33)
[2021-02-21] MEDS: traMADol HCl 50 MG TAB PO PRN (08:41)
[2021-02-21] MEDS: HumaLOG 300 UNITS/3 ML VIAL SC PRN ×2 (12:07→17:51)
[2021-02-21] MEDS: Morphine 2 MG/ML VIAL SLOW IVP PRN ×2 (12:08→23:14)
[2021-02-21] MEDS: Guaifenesin DM 100-10/5 ML UDCUP PO PRN (16:07)
[2021-02-21] MEDS: Atorvastatin Calcium 40 MG TAB PO SCH (21:50)
[2021-02-22] MEDS: Albuterol 200 PUFF (6.7GM INHALER) INH SCH ×4 (02:31→18:52)
[2021-02-22] MEDS: Dexamethasone 4 mg/ml Vial SLOW IVP SCH ×2 (06:21→17:49)
[2021-02-22] MEDS: Enoxaparin Sodium 40 MG/0.4 ML SYRINGE SC SCH ×2 (06:22→17:48)
[2021-02-22] MEDS: Mometasone 200 MCG/Formoterol 5 MCG 120 PUFF INHALER INH SCH ×2 (06:24→18:50)
[2021-02-22] MEDS: Acetaminophen 325 MG TAB PO PRN (06:35)
[2021-02-22] MEDS: Guaifenesin DM 100-10/5 ML UDCUP PO PRN (06:35)
[2021-02-22] MEDS ORDERED: Furosemide 100 MG/10 ML VIAL SLOW IVP SCH (08:00)
[2021-02-22] MEDS: hydrALAZINE 25 MG TAB PO SCH ×3 (09:25→21:16)
[2021-02-22] MEDS: Doxycycline 100 MG CAP PO SCH ×2 (09:25→21:15)
[2021-02-22] MEDS: guaiFENesin ER 600 MG TAB PO SCH ×2 (09:26→21:16)
[2021-02-22] MEDS: Bupropion 150 MG XL TAB PO SCH (09:27)
[2021-02-22] MEDS: Ascorbic Acid 500 mg Chewable Tablet PO SCH (09:28)
[2021-02-22] MEDS: Amlodipine 10 MG TAB PO SCH (09:28)
[2021-02-22] MEDS: Senokot S 8.6-50 MG TAB PO SCH ×2 (09:28→21:17)
[2021-02-22] MEDS: Cholecalciferol (Vitamin D3) 400 UNITS TAB PO SCH (09:28)
[2021-02-22] MEDS: Gabapentin 300 MG CAP PO SCH ×2 (09:28→21:15)
[2021-02-22] MEDS: HumuLIN 70/30 (300 UNITS/3 ML VIAL) SC SCH ×2 (09:29→17:00)
[2021-02-22] MEDS: Polyethylene Glycol 3350 17 GM Packet PO SCH (09:29)
[2021-02-22] MEDS: Lantus 1000 UNITS/10 ML VIAL SC SCH ×2 (09:30→21:17)
[2021-02-22] MEDS: Zinc Sulfate 220 MG CAP PO SCH (10:02)
[2021-02-22] MEDS: Colchicine 0.6 MG TAB PO SCH (10:02)
[2021-02-22] MEDS: BARICITINIB 1 MG TAB PO SCH (10:03)
[2021-02-22] MEDS: Pioglitazone HCl 45 MG TAB PO SCH (10:03)
[2021-02-22] MEDS: HumaLOG 300 UNITS/3 ML VIAL SC PRN (13:37)
[2021-02-22] MEDS: Atorvastatin Calcium 40 MG TAB PO SCH (21:15)
[2021-02-22] MEDS: Melatonin 3 MG TAB PO PRN (21:17)
[2021-02-23] MEDS: Enoxaparin Sodium 40 MG/0.4 ML SYRINGE SC SCH ×2 (04:59→16:34)
[2021-02-23] MEDS: Albuterol 200 PUFF (6.7GM INHALER) INH SCH ×4 (04:59→17:14)
[2021-02-23] MEDS: Mometasone 200 MCG/Formoterol 5 MCG 120 PUFF INHALER INH SCH ×2 (05:00→17:13)
[2021-02-23] MEDS: Dexamethasone 4 mg/ml Vial SLOW IVP SCH ×2 (05:00→15:39)
[2021-02-23] MEDS: Cepastat Lozenges 1 LOZ PO PRN (05:01)
[2021-02-23] MEDS: Acetaminophen 325 MG TAB PO PRN (05:16)
[2021-02-23 05:19] VITALS: BMI 40.0
[2021-02-23 06:43] LABS: Hemoglobin 11.7 g/dL (12.0-16.0); Mean Corpuscular HGB CONC 32.9 g/dL (32.0-36.0); Mean Corpuscular Hemoglobin 28.3 pg (27.0-31.0); Mean Corpuscular Volume 86.1 fL (78.0-98.0); Mean Platelet Volume 7.8 fL (7.4-10.4); Platelet Count 489 thou/uL (130-400); RBC Distribution Width 13.3 % (11.5-14.5); Red Blood Cell (RBC) Count 4.12 mill/uL (4.20-5.40)
[2021-02-23 07:10] LABS: ALT (SGPT) 50 U/L (8-55); AST (SGOT) 40 U/L (5-34); Albumin 3.7 g/dL (3.5-5.0); Alkaline Phosphatase 105 U/L (40-110); Anion Gap 13 mmol/L (10-20); BUN (Urea Nitrogen) 71 mg/dL (9.8-20.1); Bilirubin, Direct 0.2 mg/dL (0.1-0.3); Bilirubin, Total 0.4 mg/dL (0.2-1.2); Calc. Creatinine Clearance 56 mL/min (70-130); Calcium 9.8 mg/dL (7.8-10.44); Carbon Dioxide 29 mmol/L (22-29); Chloride 99 mmol/L (98-107); Glucose 71 mg/dL (70-105); Protein, Total 8.1 g/dL (6.0-8.3); Sodium 137 mmol/L (136-145)
[2021-02-23] MEDS: Pioglitazone HCl 45 MG TAB PO SCH (07:47)
[2021-02-23] MEDS: Colchicine 0.6 MG TAB PO SCH (07:48)
[2021-02-23] MEDS: Doxycycline 100 MG CAP PO SCH ×2 (07:48→20:25)
[2021-02-23] MEDS: Zinc Sulfate 220 MG CAP PO SCH (07:48)
[2021-02-23] MEDS: BARICITINIB 1 MG TAB PO SCH (07:48)
[2021-02-23] MEDS: Cholecalciferol (Vitamin D3) 400 UNITS TAB PO SCH (07:49)
[2021-02-23] MEDS: Bupropion 150 MG XL TAB PO SCH (07:49)
[2021-02-23] MEDS: guaiFENesin ER 600 MG TAB PO SCH ×2 (07:49→20:26)
[2021-02-23] MEDS: Gabapentin 300 MG CAP PO SCH ×2 (07:49→20:26)
[2021-02-23] MEDS: Senokot S 8.6-50 MG TAB PO SCH ×2 (07:49→20:28)
[2021-02-23] MEDS: Ascorbic Acid 500 mg Chewable Tablet PO SCH (07:49)
[2021-02-23] MEDS: Lantus 1000 UNITS/10 ML VIAL SC SCH ×3 (07:51→20:27)
[2021-02-23] MEDS: Polyethylene Glycol 3350 17 GM Packet PO SCH (07:52)
[2021-02-23] MEDS: Amlodipine 10 MG TAB PO SCH (07:56)
[2021-02-23] MEDS: hydrALAZINE 25 MG TAB PO SCH ×3 (07:57→20:26)
[2021-02-23 08:18] LABS: Band 2 % (5-11); Lymphocytes 10 % (21-51); MDiff Complete? YES; Monocytes 10 % (0-10); Neutrophil 77 % (42-75); Platelet Morphology Comment Appears Increased; Polychromasia SLIGHT = 2-3 cells (100X) (0-2/hpf); Reactive Lymphocytes 1 % (0-10)
[2021-02-23] MEDS: Sodium Chloride 0.45% 1,000 ML IV SCH (09:57)
[2021-02-23] MEDS: HumuLIN 70/30 (300 UNITS/3 ML VIAL) SC SCH ×2 (09:57→15:39)
[2021-02-23] MEDS: Guaifenesin DM 100-10/5 ML UDCUP PO PRN (09:58)
[2021-02-23] MEDS: Morphine 2 MG/ML VIAL SLOW IVP PRN ×2 (11:36→20:28)
[2021-02-23] MEDS: HumaLOG 300 UNITS/3 ML VIAL SC PRN (11:42)
[2021-02-23] MEDS: Atorvastatin Calcium 40 MG TAB PO SCH (20:25)
[2021-02-23] MEDS: Melatonin 3 MG TAB PO PRN (20:27)
[2021-02-24] MEDS: GUAIFENESIN DM SF 5 ML UDCUP PO PRN ×2 (03:25→16:01)
[2021-02-24] MEDS: Albuterol 200 PUFF (6.7GM INHALER) INH SCH ×4 (04:04→16:55)
[2021-02-24] MEDS: Dexamethasone 4 mg/ml Vial SLOW IVP SCH ×2 (05:18→15:58)
[2021-02-24] MEDS: Enoxaparin Sodium 40 MG/0.4 ML SYRINGE SC SCH ×2 (05:18→16:17)
[2021-02-24] MEDS: Acetaminophen 325 MG TAB PO PRN (05:40)
[2021-02-24] MEDS: Sodium Chloride 0.45% 1,000 ML IV SCH ×2 (05:51→16:01)
[2021-02-24] MEDS: Mometasone 200 MCG/Formoterol 5 MCG 120 PUFF INHALER INH SCH ×2 (06:11→16:55)
[2021-02-24 07:42] LABS: Anion Gap 13 mmol/L (10-20); BUN (Urea Nitrogen) 63 mg/dL (9.8-20.1); Calc. Creatinine Clearance 64 mL/min (70-130); Calcium 9.2 mg/dL (7.8-10.44); Carbon Dioxide 26 mmol/L (22-29); Chloride 101 mmol/L (98-107); Glucose 130 mg/dL (70-105); Potassium 3.9 mmol/L (3.5-5.1); Sodium 136 mmol/L (136-145)
[2021-02-24] MEDS: Doxycycline 100 MG CAP PO SCH ×2 (08:33→20:36)
[2021-02-24] MEDS: hydrALAZINE 25 MG TAB PO SCH ×3 (08:34→20:37)
[2021-02-24] MEDS: Benzonatate 100 MG CAP PO PRN ×2 (08:34→15:58)
[2021-02-24] MEDS: Cholecalciferol (Vitamin D3) 400 UNITS TAB PO SCH (08:35)
[2021-02-24] MEDS: Zinc Sulfate 220 MG CAP PO SCH (08:35)
[2021-02-24] MEDS: Senokot S 8.6-50 MG TAB PO SCH ×2 (08:35→20:38)
[2021-02-24] MEDS: Colchicine 0.6 MG TAB PO SCH (08:35)
[2021-02-24] MEDS: Bupropion 150 MG XL TAB PO SCH (08:35)
[2021-02-24] MEDS: Gabapentin 300 MG CAP PO SCH ×2 (08:35→20:36)
[2021-02-24] MEDS: Amlodipine 10 MG TAB PO SCH (08:35)
[2021-02-24] MEDS: Ascorbic Acid 500 mg Chewable Tablet PO SCH (08:35)
[2021-02-24] MEDS: guaiFENesin ER 600 MG TAB PO SCH ×2 (08:35→20:37)
[2021-02-24] MEDS: Lantus 1000 UNITS/10 ML VIAL SC SCH ×2 (08:36→20:37)
[2021-02-24] MEDS: HumuLIN 70/30 (300 UNITS/3 ML VIAL) SC SCH ×2 (08:36→15:58)
[2021-02-24] MEDS: Morphine 2 MG/ML VIAL SLOW IVP PRN (08:36)
[2021-02-24] MEDS: Ondansetron PF 4 MG/2 ML Vial IVP PRN ×2 (08:36→15:58)
[2021-02-24] MEDS: Pioglitazone HCl 45 MG TAB PO SCH (08:36)
[2021-02-24] MEDS: Polyethylene Glycol 3350 17 GM Packet PO SCH (08:36)
[2021-02-24] MEDS: BARICITINIB 1 MG TAB PO SCH (08:37)
[2021-02-24] MEDS: Atorvastatin Calcium 40 MG TAB PO SCH (20:36)
[2021-02-24] MEDS: Melatonin 3 MG TAB PO PRN (20:38)
[2021-02-24] MEDS: Guaifenesin DM 100-10/5 ML UDCUP PO PRN (21:28)
[2021-02-25] MEDS: Guaifenesin DM 100-10/5 ML UDCUP PO PRN ×3 (04:30→20:48)
[2021-02-25] MEDS: Sodium Chloride 0.45% 1,000 ML IV SCH (04:31)
[2021-02-25] MEDS: Albuterol 200 PUFF (6.7GM INHALER) INH SCH ×4 (04:31→18:23)
[2021-02-25] MEDS: Dexamethasone 4 mg/ml Vial SLOW IVP SCH ×2 (04:35→16:19)
[2021-02-25] MEDS: Acetaminophen 325 MG TAB PO PRN (04:35)
[2021-02-25] MEDS: Enoxaparin Sodium 40 MG/0.4 ML SYRINGE SC SCH ×2 (04:35→18:02)
[2021-02-25] MEDS: traMADol HCl 50 MG TAB PO PRN ×2 (05:00→20:47)
[2021-02-25] MEDS: Mometasone 200 MCG/Formoterol 5 MCG 120 PUFF INHALER INH SCH ×2 (05:47→18:03)
[2021-02-25 06:53] LABS: Anion Gap 17 mmol/L (10-20); BUN (Urea Nitrogen) 52 mg/dL (9.8-20.1); Calc. Creatinine Clearance 61 mL/min (70-130); Calcium 8.9 mg/dL (7.8-10.44); Carbon Dioxide 23 mmol/L (22-29); Chloride 102 mmol/L (98-107); Glucose 112 mg/dL (70-105); Potassium 4.5 mmol/L (3.5-5.1); Sodium 137 mmol/L (136-145)
[2021-02-25] MEDS: Doxycycline 100 MG CAP PO SCH ×2 (09:09→20:43)
[2021-02-25] MEDS: guaiFENesin ER 600 MG TAB PO SCH ×2 (09:09→20:44)
[2021-02-25] MEDS: Amlodipine 10 MG TAB PO SCH (09:09)
[2021-02-25] MEDS: BARICITINIB 1 MG TAB PO SCH (09:09)
[2021-02-25] MEDS: Senokot S 8.6-50 MG TAB PO SCH ×2 (09:09→20:47)
[2021-02-25] MEDS: Cholecalciferol (Vitamin D3) 400 UNITS TAB PO SCH (09:09)
[2021-02-25] MEDS: Zinc Sulfate 220 MG CAP PO SCH (09:09)
[2021-02-25] MEDS: Ascorbic Acid 500 mg Chewable Tablet PO SCH (09:10)
[2021-02-25] MEDS: Gabapentin 300 MG CAP PO SCH ×2 (09:10→20:44)
[2021-02-25] MEDS: Colchicine 0.6 MG TAB PO SCH (09:10)
[2021-02-25] MEDS: hydrALAZINE 25 MG TAB PO SCH ×3 (09:10→20:44)
[2021-02-25] MEDS: Polyethylene Glycol 3350 17 GM Packet PO SCH (09:10)
[2021-02-25] MEDS: Pioglitazone HCl 45 MG TAB PO SCH (09:11)
[2021-02-25] MEDS: Bupropion 150 MG XL TAB PO SCH (09:11)
[2021-02-25] MEDS: HumuLIN 70/30 (300 UNITS/3 ML VIAL) SC SCH ×2 (09:12→16:13)
[2021-02-25] MEDS: Lantus 1000 UNITS/10 ML VIAL SC SCH ×2 (09:13→20:46)
[2021-02-25] MEDS: Morphine 2 MG/ML VIAL SLOW IVP PRN (09:31)
[2021-02-25] MEDS: Ondansetron ODT 4 MG TAB PO PRN (11:05)
[2021-02-25] MEDS: HumaLOG 300 UNITS/3 ML VIAL SC PRN (12:12)
[2021-02-25] MEDS: Atorvastatin Calcium 40 MG TAB PO SCH (20:43)
[2021-02-25] MEDS: Melatonin 3 MG TAB PO PRN (20:48)
[2021-02-26] MEDS: Sodium Chloride 0.45% 1,000 ML IV SCH (01:48)
[2021-02-26] MEDS: traMADol HCl 50 MG TAB PO PRN ×2 (01:56→08:19)
[2021-02-26] MEDS: Albuterol 200 PUFF (6.7GM INHALER) INH SCH ×4 (02:16→18:53)
[2021-02-26] MEDS: Enoxaparin Sodium 40 MG/0.4 ML SYRINGE SC SCH ×2 (04:14→17:48)
[2021-02-26] MEDS: Guaifenesin DM 100-10/5 ML UDCUP PO PRN ×2 (04:14→16:29)
[2021-02-26] MEDS: Dexamethasone 4 mg/ml Vial SLOW IVP SCH ×2 (04:15→16:11)
[2021-02-26] MEDS: Mometasone 200 MCG/Formoterol 5 MCG 120 PUFF INHALER INH SCH ×2 (05:18→18:53)
[2021-02-26 06:46] LABS: ALT (SGPT) 35 U/L (8-55); AST (SGOT) 27 U/L (5-34); Albumin 3.2 g/dL (3.5-5.0); Alkaline Phosphatase 92 U/L (40-110); Anion Gap 13 mmol/L (10-20); BUN (Urea Nitrogen) 53 mg/dL (9.8-20.1); Bilirubin, Direct 0.1 mg/dL (0.1-0.3); Bilirubin, Total 0.3 mg/dL (0.2-1.2); Calc. Creatinine Clearance 62 mL/min (70-130); Calcium 8.7 mg/dL (7.8-10.44); Carbon Dioxide 25 mmol/L (22-29); Chloride 102 mmol/L (98-107); Glucose 185 mg/dL (70-105); Potassium 4.5 mmol/L (3.5-5.1); Sodium 135 mmol/L (136-145)
[2021-02-26] MEDS: HumuLIN 70/30 (300 UNITS/3 ML VIAL) SC SCH ×2 (08:00→16:12)
[2021-02-26] MEDS: guaiFENesin ER 600 MG TAB PO SCH ×2 (09:05→20:26)
[2021-02-26] MEDS: Bupropion 150 MG XL TAB PO SCH (09:05)
[2021-02-26] MEDS: Lorazepam 0.5 MG TAB PO PRN ×2 (09:05→20:28)
[2021-02-26] MEDS: Lantus 1000 UNITS/10 ML VIAL SC SCH ×2 (09:15→20:32)
[2021-02-26] MEDS: hydrALAZINE 25 MG TAB PO SCH ×3 (10:25→20:26)
[2021-02-26] MEDS: BARICITINIB 1 MG TAB PO SCH (10:25)
[2021-02-26] MEDS: Colchicine 0.6 MG TAB PO SCH (10:27)
[2021-02-26] MEDS: Doxycycline 100 MG CAP PO SCH ×2 (10:27→20:25)
[2021-02-26] MEDS: Ascorbic Acid 500 mg Chewable Tablet PO SCH (10:27)
[2021-02-26] MEDS: Amlodipine 10 MG TAB PO SCH (10:28)
[2021-02-26] MEDS: Zinc Sulfate 220 MG CAP PO SCH (10:28)
[2021-02-26] MEDS: Gabapentin 300 MG CAP PO SCH ×2 (10:28→20:25)
[2021-02-26] MEDS: Cholecalciferol (Vitamin D3) 400 UNITS TAB PO SCH (10:28)
[2021-02-26] MEDS: Pioglitazone HCl 45 MG TAB PO SCH (10:29)
[2021-02-26] MEDS: Senokot S 8.6-50 MG TAB PO SCH ×2 (10:29→20:27)
[2021-02-26] MEDS: Polyethylene Glycol 3350 17 GM Packet PO SCH (10:29)
[2021-02-26] MEDS: HumaLOG 300 UNITS/3 ML VIAL SC PRN (12:44)
[2021-02-26] MEDS: Benzonatate 100 MG CAP PO PRN (12:44)
[2021-02-26] MEDS: Atorvastatin Calcium 40 MG TAB PO SCH (20:25)
[2021-02-26] MEDS ORDERED: traZODone HCl 50 MG TAB PO PRN (21:52)
[2021-02-27] MEDS: Albuterol 200 PUFF (6.7GM INHALER) INH SCH ×4 (01:00→20:47)
[2021-02-27] MEDS: Mometasone 200 MCG/Formoterol 5 MCG 120 PUFF INHALER INH SCH ×2 (06:01→18:12)
[2021-02-27] MEDS: Enoxaparin Sodium 40 MG/0.4 ML SYRINGE SC SCH ×2 (06:04→18:12)
[2021-02-27] MEDS: Dexamethasone 4 mg/ml Vial SLOW IVP SCH ×2 (06:04→18:09)
[2021-02-27 06:32] LABS: Anion Gap 10 mmol/L (10-20); BUN (Urea Nitrogen) 50 mg/dL (9.8-20.1); Band 1 % (5-11); Calc. Creatinine Clearance 64 mL/min (70-130); Calcium 9.1 mg/dL (7.8-10.44); Carbon Dioxide 28 mmol/L (22-29); Chloride 102 mmol/L (98-107); Glucose 72 mg/dL (70-105); Hemoglobin 11.5 g/dL (12.0-16.0); Lymphocytes 25 % (21-51); MDiff Complete? YES; Mean Corpuscular HGB CONC 33.3 g/dL (32.0-36.0); Mean Corpuscular Hemoglobin 28.8 pg (27.0-31.0); Mean Corpuscular Volume 86.5 fL (78.0-98.0); Mean Platelet Volume 8.5 fL (7.4-10.4); Monocytes 3 % (0-10); Neutrophil 71 % (42-75); Platelet Count 410 thou/uL (130-400); Platelet Morphology Comment Appears Increased; Potassium 4.2 mmol/L (3.5-5.1); RBC Distribution Width 13.4 % (11.5-14.5); RBC Morphology Normal; Red Blood Cell (RBC) Count 3.98 mill/uL (4.20-5.40); Sodium 136 mmol/L (136-145); White Blood Cell (WBC) Count 18.7 thou/uL (4.8-10.8)
[2021-02-27] MEDS: Ascorbic Acid 500 mg Chewable Tablet PO SCH (09:41)
[2021-02-27] MEDS: Amlodipine 10 MG TAB PO SCH (09:41)
[2021-02-27] MEDS: BARICITINIB 1 MG TAB PO SCH (09:42)
[2021-02-27] MEDS: hydrALAZINE 25 MG TAB PO SCH ×3 (09:44→20:48)
[2021-02-27] MEDS: Zinc Sulfate 220 MG CAP PO SCH (09:45)
[2021-02-27] MEDS: Senokot S 8.6-50 MG TAB PO SCH ×2 (09:50→20:49)
[2021-02-27] MEDS: Bupropion 150 MG XL TAB PO SCH (09:50)
[2021-02-27] MEDS: Gabapentin 300 MG CAP PO SCH ×2 (09:50→20:48)
[2021-02-27] MEDS: Colchicine 0.6 MG TAB PO SCH (09:51)
[2021-02-27] MEDS: Doxycycline 100 MG CAP PO SCH ×2 (09:51→20:48)
[2021-02-27] MEDS: Cholecalciferol (Vitamin D3) 400 UNITS TAB PO SCH (09:51)
[2021-02-27] MEDS: guaiFENesin ER 600 MG TAB PO SCH ×2 (09:51→20:48)
[2021-02-27] MEDS: HumuLIN 70/30 (300 UNITS/3 ML VIAL) SC SCH ×2 (09:52→18:08)
[2021-02-27] MEDS: Lantus 1000 UNITS/10 ML VIAL SC SCH ×2 (09:54→20:49)
[2021-02-27] MEDS: Polyethylene Glycol 3350 17 GM Packet PO SCH (09:55)
[2021-02-27] MEDS: Pioglitazone HCl 45 MG TAB PO SCH (09:55)
[2021-02-27] MEDS: Benzonatate 100 MG CAP PO PRN (11:05)
[2021-02-27] MEDS: Guaifenesin DM 100-10/5 ML UDCUP PO PRN ×2 (11:05→20:54)
[2021-02-27] MEDS: traMADol HCl 50 MG TAB PO PRN ×2 (11:17→18:15)
[2021-02-27] MEDS: Lorazepam 0.5 MG TAB PO PRN ×2 (11:18→20:51)
[2021-02-27] MEDS: HumaLOG 300 UNITS/3 ML VIAL SC PRN (11:21)
[2021-02-27] MEDS: Morphine 2 MG/ML VIAL SLOW IVP PRN (15:04)
[2021-02-27] MEDS: Atorvastatin Calcium 40 MG TAB PO SCH (20:48)
[2021-02-27] MEDS: Melatonin 3 MG TAB PO PRN (20:49)
[2021-02-27] MEDS: traZODone HCl 50 MG TAB PO PRN (20:50)
[2021-02-28] MEDS: Albuterol 200 PUFF (6.7GM INHALER) INH SCH ×4 (02:36→18:26)
[2021-02-28] MEDS: HumaLOG 300 UNITS/3 ML VIAL SC PRN (05:34)
[2021-02-28] MEDS: Mometasone 200 MCG/Formoterol 5 MCG 120 PUFF INHALER INH SCH ×2 (05:37→18:26)
[2021-02-28] MEDS: Guaifenesin DM 100-10/5 ML UDCUP PO PRN ×3 (05:41→21:18)
[2021-02-28] MEDS: Enoxaparin Sodium 40 MG/0.4 ML SYRINGE SC SCH ×2 (06:23→17:03)
[2021-02-28] MEDS: Dexamethasone 4 mg/ml Vial SLOW IVP SCH ×2 (06:23→17:03)
[2021-02-28] MEDS: traMADol HCl 50 MG TAB PO PRN ×3 (06:25→20:00)
[2021-02-28 06:34] LABS: #Eosinphils 0.1 thou/uL (0.0-0.7); #Lymphocytes 2.5 thou/uL (1.20-3.40); #Neutrophils 12.2 thou/uL (1.40-6.50); %Basophils 0.1 % (0.0-1.0); %Eosinophils 0.8 % (0.0-10.0); %Lymphocytes 15.6 % (21.0-51.0); %Monocytes 6.2 % (0.0-10.0); %Neutrophils 77.3 % (42.0-75.0); Hemoglobin 11.7 g/dL (12.0-16.0); Mean Corpuscular Hemoglobin 28.4 pg (27.0-31.0); Mean Corpuscular Volume 86.1 fL (78.0-98.0); Mean Platelet Volume 7.6 fL (7.4-10.4); Platelet Count 490 thou/uL (130-400); RBC Distribution Width 13.7 % (11.5-14.5); Red Blood Cell (RBC) Count 4.11 mill/uL (4.20-5.40); White Blood Cell (WBC) Count 15.8 thou/uL (4.8-10.8)
[2021-02-28 07:02] LABS: Anion Gap 14 mmol/L (10-20); BUN (Urea Nitrogen) 55 mg/dL (9.8-20.1); Calc. Creatinine Clearance 62 mL/min (70-130); Calcium 9.2 mg/dL (7.8-10.44); Carbon Dioxide 25 mmol/L (22-29); Chloride 100 mmol/L (98-107); Glucose 123 mg/dL (70-105); Potassium 4.5 mmol/L (3.5-5.1); Sodium 134 mmol/L (136-145)
[2021-02-28] MEDS: hydrALAZINE 25 MG TAB PO SCH ×4 (09:45→20:02)
[2021-02-28] MEDS: Amlodipine 10 MG TAB PO SCH ×2 (09:45→09:54)
[2021-02-28] MEDS: guaiFENesin ER 600 MG TAB PO SCH ×2 (09:51→20:05)
[2021-02-28] MEDS: Colchicine 0.6 MG TAB PO SCH (09:51)
[2021-02-28] MEDS: Cholecalciferol (Vitamin D3) 400 UNITS TAB PO SCH (09:51)
[2021-02-28] MEDS: Zinc Sulfate 220 MG CAP PO SCH (09:52)
[2021-02-28] MEDS: Ascorbic Acid 500 mg Chewable Tablet PO SCH (09:53)
[2021-02-28] MEDS: Gabapentin 300 MG CAP PO SCH ×2 (09:53→20:03)
[2021-02-28] MEDS: Doxycycline 100 MG CAP PO SCH ×2 (09:53→20:04)
[2021-02-28] MEDS: Bupropion 150 MG XL TAB PO SCH (09:53)
[2021-02-28] MEDS: Lorazepam 0.5 MG TAB PO PRN ×2 (09:53→21:18)
[2021-02-28] MEDS: BARICITINIB 1 MG TAB PO SCH (09:54)
[2021-02-28] MEDS: Pioglitazone HCl 45 MG TAB PO SCH (09:54)
[2021-02-28] MEDS: Senokot S 8.6-50 MG TAB PO SCH ×2 (09:55→20:02)
[2021-02-28] MEDS: HumuLIN 70/30 (300 UNITS/3 ML VIAL) SC SCH ×2 (09:55→17:07)
[2021-02-28] MEDS: Polyethylene Glycol 3350 17 GM Packet PO SCH (09:55)
[2021-02-28] MEDS: Lantus 1000 UNITS/10 ML VIAL SC SCH ×2 (09:57→21:19)
[2021-02-28] MEDS: Acetaminophen 325 MG TAB PO PRN ×2 (10:04→22:58)
[2021-02-28] MEDS: Benzonatate 100 MG CAP PO PRN (20:00)
[2021-02-28] MEDS: Atorvastatin Calcium 40 MG TAB PO SCH (20:03)
[2021-03-01] MEDS: traZODone HCl 50 MG TAB PO PRN ×2 (00:50→20:17)
[2021-03-01] MEDS: Albuterol 200 PUFF (6.7GM INHALER) INH SCH ×4 (02:50→20:19)
[2021-03-01] MEDS: Guaifenesin DM 100-10/5 ML UDCUP PO PRN ×3 (05:27→23:41)
[2021-03-01] MEDS: Dexamethasone 4 mg/ml Vial SLOW IVP SCH ×2 (05:27→16:58)
[2021-03-01] MEDS: Enoxaparin Sodium 40 MG/0.4 ML SYRINGE SC SCH ×2 (05:27→16:59)
[2021-03-01 06:25] LABS: ALT (SGPT) 44 U/L (8-55); AST (SGOT) 28 U/L (5-34); Albumin 3.3 g/dL (3.5-5.0); Alkaline Phosphatase 87 U/L (40-110); Anion Gap 11 mmol/L (10-20); BUN (Urea Nitrogen) 52 mg/dL (9.8-20.1); Bilirubin, Direct 0.1 mg/dL (0.1-0.3); Bilirubin, Total 0.3 mg/dL (0.2-1.2); Calc. Creatinine Clearance 68 mL/min (70-130); Carbon Dioxide 26 mmol/L (22-29); Chloride 103 mmol/L (98-107); Glucose 115 mg/dL (70-105); Potassium 4.3 mmol/L (3.5-5.1); Sodium 136 mmol/L (136-145)
[2021-03-01] MEDS: Mometasone 200 MCG/Formoterol 5 MCG 120 PUFF INHALER INH SCH ×2 (06:43→20:18)
[2021-03-01] MEDS: traMADol HCl 50 MG TAB PO PRN ×3 (06:55→23:41)
[2021-03-01] MEDS: Amlodipine 10 MG TAB PO SCH (09:30)
[2021-03-01] MEDS: Cholecalciferol (Vitamin D3) 400 UNITS TAB PO SCH (09:30)
[2021-03-01] MEDS: Gabapentin 300 MG CAP PO SCH ×2 (09:30→20:16)
[2021-03-01] MEDS: BARICITINIB 1 MG TAB PO SCH (09:30)
[2021-03-01] MEDS: Bupropion 150 MG XL TAB PO SCH (09:30)
[2021-03-01] MEDS: Doxycycline 100 MG CAP PO SCH ×2 (09:30→20:17)
[2021-03-01] MEDS: Colchicine 0.6 MG TAB PO SCH (09:30)
[2021-03-01] MEDS: Ascorbic Acid 500 mg Chewable Tablet PO SCH (09:30)
[2021-03-01] MEDS: Pioglitazone HCl 45 MG TAB PO SCH (09:31)
[2021-03-01] MEDS: Senokot S 8.6-50 MG TAB PO SCH (09:31)
[2021-03-01] MEDS: Polyethylene Glycol 3350 17 GM Packet PO SCH (09:31)
[2021-03-01] MEDS: guaiFENesin ER 600 MG TAB PO SCH ×2 (09:31→20:17)
[2021-03-01] MEDS: hydrALAZINE 25 MG TAB PO SCH ×3 (09:31→20:17)
[2021-03-01] MEDS: Zinc Sulfate 220 MG CAP PO SCH (09:32)
[2021-03-01] MEDS: Lantus 1000 UNITS/10 ML VIAL SC SCH ×2 (09:36→20:21)
[2021-03-01] MEDS: HumuLIN 70/30 (300 UNITS/3 ML VIAL) SC SCH ×2 (09:36→16:56)
[2021-03-01] MEDS: Lorazepam 0.5 MG TAB PO PRN ×2 (10:54→20:17)
[2021-03-01] MEDS: HumaLOG 300 UNITS/3 ML VIAL SC PRN ×2 (12:34→16:57)
[2021-03-01] MEDS: Atorvastatin Calcium 40 MG TAB PO SCH (20:17)
[2021-03-02] MEDS: Senokot S 8.6-50 MG TAB PO SCH ×3 (00:21→21:00)
[2021-03-02] MEDS: Albuterol 200 PUFF (6.7GM INHALER) INH SCH ×4 (00:30→17:52)
[2021-03-02] MEDS: traMADol HCl 50 MG TAB PO PRN (06:10)
[2021-03-02] MEDS: Lorazepam 0.5 MG TAB PO PRN ×3 (06:11→20:10)
[2021-03-02] MEDS: Dexamethasone 4 mg/ml Vial SLOW IVP SCH ×2 (06:12→16:32)
[2021-03-02] MEDS: Enoxaparin Sodium 40 MG/0.4 ML SYRINGE SC SCH ×2 (06:14→17:51)
[2021-03-02] MEDS: Mometasone 200 MCG/Formoterol 5 MCG 120 PUFF INHALER INH SCH ×2 (06:15→17:52)
[2021-03-02 06:48] LABS: Anion Gap 14 mmol/L (10-20); BUN (Urea Nitrogen) 58 mg/dL (9.8-20.1); Calc. Creatinine Clearance 56 mL/min (70-130); Calcium 9.2 mg/dL (7.8-10.44); Carbon Dioxide 26 mmol/L (22-29); Chloride 101 mmol/L (98-107); Glucose 166 mg/dL (70-105); Sodium 136 mmol/L (136-145)
[2021-03-02] MEDS: HumuLIN 70/30 (300 UNITS/3 ML VIAL) SC SCH ×2 (08:24→16:33)
[2021-03-02] MEDS: Gabapentin 300 MG CAP PO SCH ×2 (08:25→20:11)
[2021-03-02] MEDS: guaiFENesin ER 600 MG TAB PO SCH ×2 (08:25→21:55)
[2021-03-02] MEDS: Polyethylene Glycol 3350 17 GM Packet PO SCH (08:25)
[2021-03-02] MEDS: hydrALAZINE 25 MG TAB PO SCH ×3 (08:26→20:09)
[2021-03-02] MEDS: Colchicine 0.6 MG TAB PO SCH (08:27)
[2021-03-02] MEDS: Ascorbic Acid 500 mg Chewable Tablet PO SCH (08:27)
[2021-03-02] MEDS: Zinc Sulfate 220 MG CAP PO SCH (08:27)
[2021-03-02] MEDS: Pioglitazone HCl 45 MG TAB PO SCH (08:27)
[2021-03-02] MEDS: Bupropion 150 MG XL TAB PO SCH (08:27)
[2021-03-02] MEDS: Doxycycline 100 MG CAP PO SCH (08:27)
[2021-03-02] MEDS: Amlodipine 10 MG TAB PO SCH (08:27)
[2021-03-02] MEDS: BARICITINIB 1 MG TAB PO SCH (08:28)
[2021-03-02] MEDS: Cholecalciferol (Vitamin D3) 400 UNITS TAB PO SCH (08:28)
[2021-03-02] MEDS: Lantus 1000 UNITS/10 ML VIAL SC SCH ×2 (08:29→20:11)
[2021-03-02] MEDS: HumaLOG 300 UNITS/3 ML VIAL SC PRN (12:30)
[2021-03-02] MEDS: Acetaminophen 325 MG TAB PO PRN (13:52)
[2021-03-02] MEDS: Melatonin 3 MG TAB PO PRN (20:09)
[2021-03-02] MEDS: Atorvastatin Calcium 40 MG TAB PO SCH (20:09)
[2021-03-02] MEDS: traZODone HCl 50 MG TAB PO PRN (22:05)
[2021-03-03] MEDS: Albuterol 200 PUFF (6.7GM INHALER) INH SCH ×3 (01:50→12:20)
[2021-03-03] MEDS: Dexamethasone 4 mg/ml Vial SLOW IVP SCH (05:55)
[2021-03-03] MEDS: Enoxaparin Sodium 40 MG/0.4 ML SYRINGE SC SCH (06:06)
[2021-03-03] MEDS: Mometasone 200 MCG/Formoterol 5 MCG 120 PUFF INHALER INH SCH (06:08)
[2021-03-03 06:48] LABS: Anion Gap 13 mmol/L (10-20); BUN (Urea Nitrogen) 61 mg/dL (9.8-20.1); Calc. Creatinine Clearance 51 mL/min (70-130); Calcium 9.5 mg/dL (7.8-10.44); Carbon Dioxide 27 mmol/L (22-29); Chloride 102 mmol/L (98-107); Glucose 201 mg/dL (70-105); Potassium 4.9 mmol/L (3.5-5.1); Sodium 137 mmol/L (136-145)
[2021-03-03 08:09] VITALS: TEMP 98.4
[2021-03-03] MEDS: Ascorbic Acid 500 mg Chewable Tablet PO SCH (08:29)
[2021-03-03] MEDS: Colchicine 0.6 MG TAB PO SCH (08:29)
[2021-03-03] MEDS: Amlodipine 10 MG TAB PO SCH (08:30)
[2021-03-03] MEDS: Zinc Sulfate 220 MG CAP PO SCH (08:30)
[2021-03-03] MEDS: Gabapentin 300 MG CAP PO SCH (08:31)
[2021-03-03] MEDS: hydrALAZINE 25 MG TAB PO SCH (08:31)
[2021-03-03] MEDS: BARICITINIB 1 MG TAB PO SCH (08:31)
[2021-03-03] MEDS: Cholecalciferol (Vitamin D3) 400 UNITS TAB PO SCH (08:31)
[2021-03-03] MEDS: traMADol HCl 50 MG TAB PO PRN (08:33)
[2021-03-03] MEDS: Lorazepam 0.5 MG TAB PO PRN (08:33)
[2021-03-03] MEDS: Pioglitazone HCl 45 MG TAB PO SCH (08:33)
[2021-03-03] MEDS: Guaifenesin DM 100-10/5 ML UDCUP PO PRN (08:33)
[2021-03-03] MEDS: Bupropion 150 MG XL TAB PO SCH (08:35)
[2021-03-03] MEDS: HumuLIN 70/30 (300 UNITS/3 ML VIAL) SC SCH (08:36)
[2021-03-03] MEDS: Lantus 1000 UNITS/10 ML VIAL SC SCH (08:38)
[2021-03-03] MEDS: Polyethylene Glycol 3350 17 GM Packet PO SCH (08:43)
[2021-03-03] MEDS: Senokot S 8.6-50 MG TAB PO SCH (08:43)
[2021-03-03] MEDS: guaiFENesin ER 600 MG TAB PO SCH (08:44)
[2021-03-03] MEDS ORDERED: Dexamethasone 4 mg/ml Vial SLOW IVP SCH ×3 (09:07→17:00)
[2021-03-03 12:13] VITALS: BP 148/82
[2021-03-03] MEDS: HumaLOG 300 UNITS/3 ML VIAL SC PRN (12:19)
== END 2021-03-03 13:35 | disposition home or self-care (01) | DRG 871 ==
LOC: ERS 16:13 → 2SW 17:58 → T4-B 02-22 20:55
PROVIDERS: ADMIT Internal Medicine; ATTEND Internal Medicine
PROC: 8E0ZXY6 Isolation (ICD-10-PCS; 2021-02-12)
PROC: 5A0955A Assistance with Respiratory Ventilation, Greater than 96 Consecutive Hours, High Flow/Velocity Cannula (ICD-10-PCS; principal; 2021-02-18)
DX: A41.89 Other specified sepsis (principal); U07.1 COVID-19; J12.82 Pneumonia due to coronavirus disease 2019; J96.01 Acute respiratory failure with hypoxia; N17.9 Acute kidney failure, unspecified; N18.4 Chronic kidney disease, stage 4 (severe); F33.9 Major depressive disorder, recurrent, unspecified; N30.00 Acute cystitis without hematuria; I47.1 Supraventricular tachycardia; Z68.41 Body mass index [BMI] 40.0-44.9, adult; E11.22 Type 2 diabetes mellitus with diabetic chronic kidney disease; E66.01 Morbid (severe) obesity due to excess calories; E78.5 Hyperlipidemia, unspecified; I12.9 Hypertensive chronic kidney disease with stage 1 through stage 4 chronic kidney disease, or unspecified chronic kidney disease; K21.9 Gastro-esophageal reflux disease without esophagitis; F14.10 Cocaine abuse, uncomplicated; K76.0 Fatty (change of) liver, not elsewhere classified; E78.2 Mixed hyperlipidemia; T38.0X5A Adverse effect of glucocorticoids and synthetic analogues, initial encounter; E11.65 Type 2 diabetes mellitus with hyperglycemia; F41.9 Anxiety disorder, unspecified; F39 Unspecified mood [affective] disorder; Z79.4 Long term (current) use of insulin; Z90.49 Acquired absence of other specified parts of digestive tract; Z98.51 Tubal ligation status; Z79.899 Other long term (current) drug therapy
CPT/HCPCS: 0240U; 36415; 36416; 71045; 80048; 80053; 80076; 80306; 81003; 81015; 82728; 83605; 83735; 83880; 84145; 84484; 85025; 85379; 85610; 85730; 86140; 87040; 87086; 93005; 94760; 96365; 96367; 96375; J0360; J0456; J0696; J1100; J1650; J1815; J1885; J1940; J2060; J2270; J2405; J3490; Q0162

== ENCOUNTER 2021-03-07 15:38 | Observation (INO) | payer MEDICARE ==
[~2021-03-07 15:38] MED LIST: Iopamidol-370 76% 500 ML 1 ML ONE
[2021-03-07] MEDS ORDERED: Acetaminophen 500 MG TAB ONE (16:12)
[2021-03-07 16:48] LABS: #Basophils 0.1 thou/uL (0.0-0.2); #Eosinphils 0.2 thou/uL (0.0-0.7); #Lymphocytes 1.8 thou/uL (1.20-3.40); #Monocytes 0.8 thou/uL (0.11-0.59); #Neutrophils 6.7 thou/uL (1.40-6.50); %Basophils 0.8 % (0.0-1.0); %Eosinophils 1.7 % (0.0-10.0); %Lymphocytes 18.9 % (21.0-51.0); %Monocytes 8.7 % (0.0-10.0); %Neutrophils 69.9 % (42.0-75.0); Hemoglobin 12.2 g/dL (12.0-16.0); Mean Corpuscular HGB CONC 33.8 g/dL (32.0-36.0); Mean Platelet Volume 8.7 fL (7.4-10.4); Platelet Count 267 thou/uL (130-400); RBC Distribution Width 14.2 % (11.5-14.5); Red Blood Cell (RBC) Count 4.21 mill/uL (4.20-5.40); White Blood Cell (WBC) Count 9.6 thou/uL (4.8-10.8)
[2021-03-07 17:12] LABS: CK (CPK) 33 U/L (29-168); CRP (Inflammatory) 1.14 mg/dL (= or < 0.5); Magnesium 1.4 mg/dL (1.6-2.6)
[2021-03-07 17:14] LABS: ALT (SGPT) 41 U/L (8-55); AST (SGOT) 16 U/L (5-34); Albumin 3.9 g/dL (3.5-5.0); Alkaline Phosphatase 102 U/L (40-110); Anion Gap 13 mmol/L (10-20); BUN (Urea Nitrogen) 41 mg/dL (9.8-20.1); Bilirubin, Total 0.4 mg/dL (0.2-1.2); Calc. Creatinine Clearance 0 mL/min (70-130); Carbon Dioxide 30 mmol/L (22-29); Chloride 97 mmol/L (98-107); Globulin 3.4 g/dL (2.4-3.5); Glucose 325 mg/dL (70-105); Lipase 92 U/L (8-78); Potassium 4.5 mmol/L (3.5-5.1); Protein, Total 7.3 g/dL (6.0-8.3); Sodium 135 mmol/L (136-145)
[2021-03-07] MEDS ORDERED: Magnesium 2 GM/50 ML BAG (IN WATER) ONE (18:32)
[2021-03-07] MEDS ORDERED: Aspirin Chewable 81 MG TAB ONE (18:32)
[2021-03-07] MEDS ORDERED: HumaLOG 300 UNITS/3 ML VIAL SC PRN (20:04)
[2021-03-07] MEDS ORDERED: HYDROcodone/Acetaminophen 5/325 mg Tablet PO PRN (20:04)
[2021-03-07] MEDS ORDERED: Zolpidem Tartrate 5 MG TAB PO PRN (20:04)
[2021-03-07] MEDS ORDERED: Dextrose 50% Abboject 50 ML SYRINGE SLOW IVP PRN (20:04)
[2021-03-07] MEDS ORDERED: Dextrose 5% in Water 1,000 ML IV PRN (20:04)
[2021-03-07] MEDS ORDERED: Ondansetron PF 4 MG/2 ML Vial IVP PRN (20:04)
[2021-03-07] MEDS ORDERED: Doxepin HCl 10 MG CAP PO PRN (20:06)
[2021-03-07] MEDS ORDERED: GUAIFENESIN SF SOLN 200 MG/10 ML UDCUP PO PRN (20:07)
[2021-03-07 20:51] LABS: Troponin I 0.019 ng/mL (< 0.028)
[2021-03-07] MEDS ORDERED: Famotidine 20 MG TAB PO SCH (21:00)
[2021-03-07] MEDS ORDERED: Albuterol 200 PUFF (6.7GM INHALER) INH PRN (21:06)
[2021-03-07] MEDS: Gabapentin 300 MG CAP PO SCH (21:57)
[2021-03-07] MEDS: Nystatin 500,000 UNITS/5 ML UDCUP SSW SCH (21:57)
[2021-03-07] MEDS: Atorvastatin Calcium 40 MG TAB PO SCH (21:57)
[2021-03-07] MEDS: hydrALAZINE 25 MG TAB PO SCH (21:57)
[2021-03-07 22:25] VITALS: BMI 37.0
[2021-03-07 23:13] LABS: Troponin I 0.022 ng/mL (< 0.028)
[2021-03-08 05:30] LABS: Hemoglobin 11.5 g/dL (12.0-16.0); Mean Corpuscular HGB CONC 32.8 g/dL (32.0-36.0); Mean Corpuscular Hemoglobin 28.1 pg (27.0-31.0); Mean Corpuscular Volume 85.8 fL (78.0-98.0); Mean Platelet Volume 8.4 fL (7.4-10.4); Platelet Count 271 thou/uL (130-400); RBC Distribution Width 14.5 % (11.5-14.5); Red Blood Cell (RBC) Count 4.07 mill/uL (4.20-5.40); White Blood Cell (WBC) Count 10.5 thou/uL (4.8-10.8)
[2021-03-08 05:42] LABS: ALT (SGPT) 40 U/L (8-55); AST (SGOT) 21 U/L (5-34); Albumin 3.5 g/dL (3.5-5.0); Alkaline Phosphatase 94 U/L (40-110); Anion Gap 15 mmol/L (10-20); BUN (Urea Nitrogen) 42 mg/dL (9.8-20.1); Bilirubin, Total 0.3 mg/dL (0.2-1.2); Calc. Creatinine Clearance 57 mL/min (70-130); Calcium 9.3 mg/dL (7.8-10.44); Carbon Dioxide 28 mmol/L (22-29); Chloride 97 mmol/L (98-107); Glucose 486 mg/dL (70-105); Potassium 4.6 mmol/L (3.5-5.1); Protein, Total 6.5 g/dL (6.0-8.3); Sodium 135 mmol/L (136-145)
[2021-03-08 06:20] LABS: Band 2 % (5-11); Eosinophils 2 % (0-10); Lymphocytes 23 % (21-51); MDiff Complete? YES; Monocytes 7 % (0-10); Neutrophil 66 % (42-75)
[2021-03-08] MEDS: HumaLOG 300 UNITS/3 ML VIAL SC PRN ×2 (06:24→16:03)
[2021-03-08] MEDS: HumuLIN 70/30 (300 UNITS/3 ML VIAL) SC SCH ×2 (11:09→18:02)
[2021-03-08] MEDS: Dexamethasone 1 MG TAB PO SCH ×2 (11:12→18:02)
[2021-03-08] MEDS: Enoxaparin Sodium 40 MG/0.4 ML SYRINGE SC SCH (11:12)
[2021-03-08] MEDS: Famotidine 20 MG TAB PO SCH (11:13)
[2021-03-08] MEDS: Gabapentin 300 MG CAP PO SCH ×2 (11:13→21:12)
[2021-03-08] MEDS: Pioglitazone HCl 45 MG TAB PO SCH (11:14)
[2021-03-08] MEDS: Nystatin 500,000 UNITS/5 ML UDCUP SSW SCH ×4 (11:14→21:12)
[2021-03-08] MEDS: hydrALAZINE 25 MG TAB PO SCH ×3 (11:14→21:14)
[2021-03-08] MEDS: Acetaminophen 325 MG TAB PO PRN ×2 (11:15→13:56)
[2021-03-08] MEDS: Zinc Sulfate 220 MG CAP PO SCH (11:15)
[2021-03-08] MEDS ORDERED: Clotrimazole 2% 3 Day Vag Cr 22.2 GM TUBE VAG SCH (21:00)
[2021-03-08] MEDS: Atorvastatin Calcium 40 MG TAB PO SCH (21:12)
[2021-03-09] MEDS: HumaLOG 300 UNITS/3 ML VIAL SC PRN ×3 (06:13→17:15)
[2021-03-09 07:02] LABS: ALT (SGPT) 41 U/L (8-55); AST (SGOT) 17 U/L (5-34); Albumin 3.8 g/dL (3.5-5.0); Alkaline Phosphatase 106 U/L (40-110); Bilirubin, Direct 0.2 mg/dL (0.1-0.3); Bilirubin, Total 0.4 mg/dL (0.2-1.2)
[2021-03-09] MEDS: Dexamethasone 1 MG TAB PO SCH (09:00)
[2021-03-09] MEDS: Famotidine 20 MG TAB PO SCH (09:00)
[2021-03-09] MEDS: Gabapentin 300 MG CAP PO SCH (09:01)
[2021-03-09] MEDS: Zinc Sulfate 220 MG CAP PO SCH (09:01)
[2021-03-09] MEDS: hydrALAZINE 25 MG TAB PO SCH ×2 (09:01→15:47)
[2021-03-09] MEDS: Pioglitazone HCl 45 MG TAB PO SCH (09:01)
[2021-03-09] MEDS: Nystatin 500,000 UNITS/5 ML UDCUP SSW SCH ×3 (09:02→15:47)
[2021-03-09] MEDS: HumuLIN 70/30 (300 UNITS/3 ML VIAL) SC SCH ×2 (09:02→17:14)
[2021-03-09] MEDS: Enoxaparin Sodium 40 MG/0.4 ML SYRINGE SC SCH (14:46)
[2021-03-09 16:36] VITALS: BP 150/99; TEMP 98.6
[2021-03-09] MEDS ORDERED: hydrOXYzine 25 MG TAB PO PRN (17:26)
[2021-03-10] MEDS ORDERED: Dexamethasone 4 MG TAB PO SCH (09:00)
== END 2021-03-09 18:22 | disposition home or self-care (01) ==
LOC: ERS 15:38 → 2SE 18:06
PROVIDERS: ADMIT Internal Medicine; ATTEND Internal Medicine
DX: U07.1 COVID-19 (principal); J12.82 Pneumonia due to coronavirus disease 2019; J96.01 Acute respiratory failure with hypoxia; N17.9 Acute kidney failure, unspecified; I12.9 Hypertensive chronic kidney disease with stage 1 through stage 4 chronic kidney disease, or unspecified chronic kidney disease; E11.22 Type 2 diabetes mellitus with diabetic chronic kidney disease; N18.32 Chronic kidney disease, stage 3b; K21.9 Gastro-esophageal reflux disease without esophagitis; E78.5 Hyperlipidemia, unspecified; B37.0 Candidal stomatitis; E11.65 Type 2 diabetes mellitus with hyperglycemia; E66.01 Morbid (severe) obesity due to excess calories; Z68.37 Body mass index [BMI] 37.0-37.9, adult; Z79.4 Long term (current) use of insulin; Z79.899 Other long term (current) drug therapy
CPT/HCPCS: 71045; 71275; 80053 ×2; 80076; 82550; 82962 ×3; 83605; 83690; 83735; 84484 ×2; 85007; 85025; 85027; 85379; 86140; 93005; 96372; 97116; 97139; 97530 ×2; G0378 ×4; 36415; 36416; 96374; J1650; J1815; J3475; J8540; Q9967